=== PATIENT | female | born 1990 | race Caucasian/White ===

== ENCOUNTER → 2019-02-22 11:53 | Outpatient (CLI) | payer MEDICAID, SELFPAY ==
[2019-02-22 16:30] LABS: Chlamydia Trachomatis by PCR Negative (Negative); Neisserai gonorrhoeae by PCR Negative (Negative)
[2019-02-22 16:31] LABS: Probe Check PASS; Sample Adequacy Control PASS; Specimen Processing Control PASS
[2019-02-25 11:17] LABS: HPV HC, High Risk Negative (Negative)
== END ==
PROVIDERS: Visit Provider Obstetrics & Gynecology
DX: Z32.01 Encounter for pregnancy test, result positive (principal); Z12.4 Encounter for screening for malignant neoplasm of cervix; Z11.3 Encounter for screening for infections with a predominantly sexual mode of transmission
CPT/HCPCS: 87491; 87591; 87624; 88175; G0145

== ENCOUNTER → 2019-03-18 15:15 | Outpatient (CLI) | payer MEDICAID, SELFPAY ==
[2019-03-18 17:12] LABS: Absolute Lymphocyte Count 2.11 X10^3/ul (0.83-4.51); Absolute Neutrophil Count 4.6 X10^3/uL (2.0-7.7); Basophil# 0.01 X10^3/uL; Basophil% 0.1 % (0-1); Eosinophil# 0.19 X10^3/uL; Eosinophils% 2.5 % (0-5); Hematocrit 39.3 % (37-47); Hemoglobin 13.4 g/dl (12.0-15.0); Lymphocyte # 2.11 X10^3/ul (4.0); Lymphocyte % 27.9 % (19-41); Mean Corp Hgb Conc 34.1 g/gl (32-36); Mean Corpuscular Hgb 30.5 pg (27.0-32.0); Mean Corpuscular Volume 89.3 fL (81-99); Mean Platelet Vol. 11.4 fl (6.2-12.0); Monocyte# 0.65 X10^3/uL; Monocyte% 8.6 % (0-10); Neutrophil % 60.8 % (47-70); Platelet Count 234 K/mm3 (150-450); RBC Distribution Width CV 11.5 % (11.6-14.6); RBC Distribution Width SD 36.5 fl (35.1-43.9); White Blood Count 7.6 K/mm3 (4.4-11.0)
[2019-03-18 17:13] LABS: Color, Urine Yellow (Yellow); Glucose, Dipstick Normal (Normal); Ketone-Dipstick Negative (Negative); Leukocyte Esterase-Dipstick 100 /ul (Negative); Nitrite-Dipstick Negative (Negative); Occult Blood-Urine Negative /ul (Negative); POSITIVE COUNT NO; POSITIVE DIFFERENTIAL NO; POSITIVE MORPHOLOGY NO; Protein-Dipstick 15 mg/dl (Negative); Specific Gravity, Urine 1.015 (1.002-1.030); Urine Bilirubin Dipstick Negative (Negative); Urine Clarity Clear (Clear); Urine Urobilinogen 1 mg/dl (Normal)
[2019-03-18 17:27] LABS: Thyroid Stim Hormone (TSH) 0.18 uIU/mL (0.358-3.74)
[2019-03-18 17:33] LABS: Amphetamine Urine VISTA NEGATIVE (<1000 ng/mL); Barbiturate Urine VISTA NEGATIVE (< 200 ng/mL); Benzodiazepine Urine VISTA NEGATIVE (< 200 ng/mL); Cocaine Urine VISTA NEGATIVE (< 300 ng/mL); Ecstacy Urine VISTA NEGATIVE (< 500 ng/mL); Methadone Urine VISTA NEGATIVE (< 300 ng/mL); PCP Urine VISTA NEGATIVE (< 25 ng/mL); THC Urine VISTA NEGATIVE (< 50 ng/mL); Vista UDS pH Range 7
[2019-03-21 10:04] LABS: HIV - WCH Non-Reactive (Nonreactive); Hepatitis B Surface Antigen Non-Reactive (Nonreactive); Hepatitis C Antibody Non-Reactive (Nonreactive); Rubella IgG 29.2 IU/mL
[2019-03-21 11:56] LABS: Free T3 3.2 pg/mL (2.18-3.98); T4 Free Direct 1.19 ng/dL (0.76-1.46)
[2019-03-25 02:57] LABS: Prenatal RPR NONREACTIVE (NONREACTIVE)
== END ==
PROVIDERS: Visit Provider Obstetrics & Gynecology
DX: O99.281 Endocrine, nutritional and metabolic diseases complicating pregnancy, first trimester (principal); E03.9 Hypothyroidism, unspecified; Z3A.00 Weeks of gestation of pregnancy not specified
CPT/HCPCS: 36415; 80307; 81002; 84439; 84443; 84481; 85025; 86703; 86762; 86803; 87340

== ENCOUNTER → 2019-07-26 14:08 | Outpatient (CLI) | payer MEDICAID, SELFPAY ==
[2019-07-26 15:50] LABS: Hematocrit 36.1 % (37-47); Hemoglobin 11.9 g/dL (12.0-15.0); Mean Corpuscular Hgb 30.9 pg (27.0-32.0); Mean Corpuscular Volume 93.8 fL (81-99); Mean Platelet Vol. 11.6 fl (6.2-12.0); Platelet Count 218 K/mm3 (150-450); RBC Distribution Width SD 41.2 fl (35.1-43.9); Red Blood Count 3.85 M/mm3 (4.2-5.4)
[2019-07-26 16:01] LABS: Glucose Challenge Gest 1H 50g 149 mg/dL (70-140)
== END ==
PROVIDERS: Visit Provider Obstetrics & Gynecology
DX: Z34.83 Encounter for supervision of other normal pregnancy, third trimester (principal)
CPT/HCPCS: 36415; 82950; 84443; 85027

== ENCOUNTER → 2019-08-09 17:37 | Outpatient (CLI) | payer MEDICAID, SELFPAY ==
[2019-08-09 18:13] LABS: Hemoglobin A1c 5.1 % (4.2-6.3)
== END ==
PROVIDERS: Referring Provider Obstetrics & Gynecology; Visit Provider Obstetrics & Gynecology
DX: R73.09 Other abnormal glucose (principal)
CPT/HCPCS: 83036

== ENCOUNTER 2019-09-18 22:35 | Outpatient (CLI) | payer MEDICAID, SELFPAY ==
[2019-09-18 23:21] VITALS: BMI 28.3
--- NOTE | 2019-09-19 05:23 | OB.TRI.NOTE ---
- Problem List (1) False labor before 37 completed weeks of gestation Status: Acute Qualifiers: Trimester: third trimester Qualified Code(s): O47.03 - False labor before 37 completed weeks of gestation, third trimester History of Present Illness Date of Service: 09/19/19 Was patient seen by the physician?: Yes Reason For Visit: R/O LABOR Final ANGELIQUE: 10/17/19 Final ANGELIQUE Source: US <20 weeks Gestational age: 36 Weeks and 0 Days History of Present Illness: 29yo @ 36wga with c/o contractions. Denies LOF, VB. + FM. Reports abdominal pain on ROS. Pain x 2-3 weeks and reported it was constant, but later reported pain intermittent. Precipitated with sitting upright for too long. Denies alleviators or any relation to meals. Reports nausea and emesis up to 4x daily since the beginning of . Allergies No Known Allergies Allergy (Verified 09/19/19 02:17) Review of Systems Constitutional: Reports: Fatigue. Denies: Chills, Fever HEENT: Denies: Head Aches, Visual Changes Cardiovascular: Denies: Chest Pain, Edema Respiratory: Denies: Shortness of Breath Gastrointestinal: Reports: Abdominal Pain, Nausea, Vomiting - vomiting up to 4x daily throughout Genitourinary: Denies: Dysuria, Frequency, Hematuria Gynecological: Denies: Vaginal bleeding Physical Exam Vitals: avss General: Alert, Oriented x3, Cooperative, No apparent distress HEENT: Atraumatic, Normocephalic Cardiovascular: Regular Rhythm, Tachycardic Lungs: Clear to auscultation, Normal air movement Abdomen: Soft, Non Tender, Non-Distended, Gravid Extremities:: No edema Neurological: Neuro grossly intact NST - FHR Rate Baby A Baseline: 155 Variability:: Moderate Accelerations:: 15 x 15 Decelerations:: None NST Reactive:: Yes FHR Category:: Category I Impression/Plan 29yo @ 36wga with false labor -No dilation -Abdominal pain - nonacute, non-reproducible and likely due to musculoskeletal changes in -d/c home Code Visit Office Visits / Consults: [id number] OV L2 New
== END 2019-09-19 02:25 | disposition home or self-care (01) ==
LOC: WPOUT 23:04 → WP 23:07
PROVIDERS: Referring Provider Obstetrics & Gynecology; Visit Provider Obstetrics & Gynecology
DX: O47.03 False labor before 37 completed weeks of gestation, third trimester (principal); Z3A.36 36 weeks gestation of pregnancy
CPT/HCPCS: 59025; 59050; 99202; 99218; G0378

== ENCOUNTER → 2019-10-03 10:56 | Outpatient (CLI) | payer MEDICAID, SELFPAY ==
[2019-09-18 23:21] VITALS: BMI 28.3
== END ==
PROVIDERS: Visit Provider Obstetrics & Gynecology
DX: O26.893 Other specified pregnancy related conditions, third trimester (principal); R21 Rash and other nonspecific skin eruption; Z3A.00 Weeks of gestation of pregnancy not specified
CPT/HCPCS: 36415

== ENCOUNTER 2019-10-10 10:00 | Inpatient (IN) | payer MEDICAID, SELFPAY ==
[2019-10-10 08:58] VITALS: BMI 29.4
[2019-10-10 09:49] LABS: Hematocrit 30.6 % (37-47); Hemoglobin 9.9 g/dL (12.0-15.0); Mean Corp Hgb Conc 32.4 g/dL (32-36); Mean Corpuscular Hgb 27.9 pg (27.0-32.0); Mean Corpuscular Volume 86.2 fL (81-99); Mean Platelet Vol. 11.1 fl (6.2-12.0); Platelet Count 177 K/mm3 (150-450); RBC Distribution Width CV 13.2 % (11.6-14.6); RBC Distribution Width SD 41.3 fl (35.1-43.9); Red Blood Count 3.55 M/mm3 (4.2-5.4)
[2019-10-10] MEDS: Lactated Ringers 500 ML 999 ML IV ×4 (10:31→23:25)
--- NOTE | 2019-10-10 10:42 | PCM.HP.BLA ---
History and Physical Date of Admission: 10/10/19 ACOG ANTEPARTUM RECORD - HISTORY AND PHYSICAL (10/10/2019) Name: SOFY MCGARRY OB Physician: EZEQUIEL [place]'s Physician: [facility] ...................................................................... : 1990 Age: 29 Address: [address] [address] Phone: H) [phone]) [phone] Insurance Carrier: [employer] CLAIMS DEPT [id number] Emergency Contact: CORAZON GAYLE [phone] ...................................................................... Sofy is a 29yo at 39w0d gestation by 9w4d US who presents for c/o contractions since 2200 last evening Final ANGELIQUE: 10/17/19 By Ultrasound: PARITY: (G-Total Pregnancies P-Fullterm,Premature,Induced AB,Spont AB, Ectopics, Multiple,Living) ANEGLIQUE CONFIRMATION: By LMP: 01/04/19 Final ANGELIQUE: 10/17/19 OB PROBLEM LIST: Declines MSAFP and CF testing Glucola high 149 REFUSED 3 hr GTT -- Hgb A1C 5.1 % WNL. High stress levels related to custody issues with daughter's father New FOB, this is his first child Quit smoking 6 months ago TSH suppressed early , TSH wnl at 28 wks Free T3 and free T4 WNL WNL at 28 wks. Wants PP tubal Signed Federal consent for tubal on 08/23/19 ALLERGIES: No Known Drug Allergies MEDICATIONS: 28 mg-800 mcg tablet 1 PO QD Prevacid 30 mg capsule,delayed release 1 po daily promethazine 25 mg tablet one tab PO every 6 hours as needed for nausea Zofran 4 mg tablet one tab PO every 6 hours as needed for nausea SOCIAL HISTORY: Smoking - used to smoke but quit Alcohol Use - drinks occasionally and not while Diet - no special diet Lifestyle - moderate stress lifestyle and Exercise - active Employer - unemployed Job Description - Illicit Drug Use - denies use of street drugs Sexual Activity - Residence - lives with Place of - [place], [place] Spouse-Sig Other Name - Corazon Gayle Spouse-Sig Other Occupation - production waste management Spouse-Sig Other Phone No - [phone] Children Name(s) - Eliu Mohan Sarah PRIOR DELIVERY HISTORY DEL DATE GEST LAB WT LB WT OZ TYPE ANES LABOR TX Jul 31 4 0 0 0 Sab None No May 29 38 12 6 10 Vag Epidural No Apr 23 38 3 6 14 Vag None No May 31 38 4 6 5 Vag Epidural No ANTEPARTUM FLOW CHART VISIT GE RTC FU F F UT U U DATE WK MD WKS HT PN HR M SS BP ED WT UT GL D EF ST __ ____ ___ __ __ ___ __ __ __ ___ __ __ __ ___ __ 20 Sep CH 1 38 V + + 124/70 sl 161 tr - 2+ 50 -2 Sep KW 1 37 V + + 120/70 0 157 tr - 1+ 50 -3 07 Sep CH 1 37 V + + 110/60 sl 154 tr - Aug ELB 1 35 V + + 120/80 sl 154 tr - Aug ELB 2 33 - + + 124/64 sl 153 - - Aug ELB 2 31 - + + 110/72 0 151 tr - Aug 13 ELB 2 30 - + + 120/72 0 152 tr - Aug 11 CH 2 26 V + + 100/80 0 149 23 Jul 08 KW + 112/82 0 149 tr - 18 Jul 07 ELB 4 24 - + + 110/74 149 20 Jun 03 ELB 4 - B U+ + 90/78 0 141 tr - 06 Jun 01 ELB 2 - - + + 110/70 0 141 - - Apr 26 ELB 4 - - + O 100/72 0 138 - - 05 Mar 22 ELB 4 - - U+ O 100/60 139 - - ANTEPARTUM NOTE(S): Oct 03 2019: lots of pressure and having some cxs. Cervix check. Sep 27 2019: Cervix check. Would like membrane stripped. Sep 20 2019: feeling well. was in L and D for cxs. Sep 13 2019: no Tdap, GBS next visit, reviewed FM, and labor Aug 30 2019: Aug 23 2019: doing well Aug 09 2019: doing well, reviewed FM, PTL- declines flu and Tdap Jul 26 2019: feeling well. Glucola drawn. Jul 06 2019: bleeding and upper right abd pain this morning Jul 01 2019: Jun 03 2019: feeling well. May 20 2019: feeling well. Apr 15 2019: nausea has been getting better. Mar 18 2019: Nausea COMPREHENSIVE ANTEPARTUM NOTE(S): Oct 03 2019: here for increased leti smith and pressure. SVE 50/-2 membrane swept. FHR 142. +FM. Rash on abdomen, but no palm or sole itching. Will still get bile acids to check. If okay will return in 1 week for routine PNV with KW and wishes IOL at 39.0. - Sep 30 2019: LATE ENTRY FOR 09/27/19 - Feeling well; reports active FM, frequent BH UCs; denies VB, LOF; VE per patient request 1.5 /-3 soft, posterior; membrane sweep requested and performed; discussed FM counts, warning signs, s/s Labor, when to call/come in; RTO 1 week for PNV - W Sep 20 2019: Routine PNV. Reports +FM. FHR 143. GBS already done in LD. Was fanny, but not dilating. Stopped fanny after hydrated. Will start doing SVE at 38 weeks with membrane sweeping. Already off work. Signed BTL for PP. Understands will schedule at 6wk PP appointment. Is planning an epidural in labor. To call with decreased FM, bleeding, ROM or regular UC. Will return in 1 week for routine PNV. [facility] Sep 13 2019: REQUESTS NOTE to be off work. Cleaning supplies and odors causing more problem with N/V. Gets preschool services through S and needs note for this. Advised she may not deliver for another month. RTO in 1 wk for PNV. Note for off work to be given at front. Aug 30 2019: UA: Sp Gr 1.020. Tr LE. Tr protein. Otherwise NEG. States not able to keep anything down. Ketones NEG. Advised as ketones neg, 2# wt gain since last visit and no evidence of UTI. Prevacid daily RX sent in and may continue the prn zofran and phenergan. Aug 23 2019: FM, PTL, PROM reviewed. Refuses both Influenza and Tdap vaccines. LMT Aug 23 2019: Reviewed R,B,A of tubal ligation. Advised interval procedure unless she has a C/S delivery. Reviewed methods including: BPS, filshie vs bilateral salpingectomy as interval procedure. Interested in interval procedure. RTO In 2 wk for PNV. Aug 10 2019: Hg A1C 5.1 - Aug 09 2019: Refused 3 hr GTT 1 hr glucola high 149 WIll get HgbA1C and is ok with this. Refused both flu vaccine and tdaP. RTO in 2wk for PNV. EB Jul 26 2019: (m,m,f,f*) U/S today shows resolved previous placenta previa. 7.3cm away from cervix. Growth 39%, RADHA 12.7cm. Denies any bleeding or contractions. Feeling well. Reporting +FM. FHR 150. Had 3rd trimester labs drawn today, with added TSH to recheck from low TSH in 1st trimesterr. Discussed warning signs to call. Will return in 2 weeks for routine PNV with Dr. Vidal Harrison Jul 06 2019: Sofy calling @ 25 wks 2 days with concern of sharp stabbing pains R side intermittently since Thursday, becoming more painful. Red spotting noted last night and this morning with associated cramping. Denies IC past 3 days. Fetus moving, but less than her normal. appt given for this afternoon. Jul 06 2019: Pt reportig lower R sided abdominal cramping x 3 days, and spotting; describes spotting as brownish red, small amount on tissue after using bathroom last night and this morning; none since that time; denies IC x 3 days; denies fall or impact of any kind; denies s/s UTI; tender area lower right abdomen near round ligamen; US shows marginal previa resolved, no placental separation, no cysts; advised pt likely old blood from cervical irritation from IC, and pain likely musculoskeletall; advised Tylenol, 1000mg and heat to area, rest and fluids, call if no relief; RTO next scheduled office visit - KVW Jul 01 2019: Sofy is here for visit. She reports increased pressure. This is her fourth . Advised to try maternity support belt. She is wanting an u/s today. Advised no u/s available today. This is usually repeated at 28-30 weeks. Glucola is given. Recommended Influenza and Tdap. LMT Apr 15 2019: Reviewed NOB labs. Doing well. RTO In 4 wk for PNV. 7-8 wk for PNV and 20 wk sono. EB Mar 21 2019: Rubella IMMUNE EB Mar 18 2019: States still N/V in am and during daytime,. and more able to tolerate foods at hs. Zofran and Promethazine RX at home., declines RX RF for today. Weight is stable Some constipation. RTO in 4 wk for PNV. Labs and NOB today, all done. EB hgb 13.4 g/dl. EB Mar 18 2019: Sofy is here for her NOB visit at 9 w 4 d, she is a A1 with an ANGELIQUE of 10/17/2019. FOB/SO, Corazon Gayle accompanies her today, along with her oldest son. This is Corazon's first child, and he seems supportive. Sofy plans delivery at [facility], and to both breast and formula feed baby. Encouraged to take a guided group tour of [facility] OB Unit. She would like to have a pp tubal. Sofy has had vaginal deliveries with her other children; past history updated. Office practice patterns reviewed, including labs that will be collected today. Emergencies/danger signs to report, contacting the office after hours, round ligament pain, reporting s/s of a UTI, and common OTC medications approved/not approved for use during reviewed. Sofy states that she quit smoking at the end of 2018, and tries to avoid second hand smoke. Corazon smokes outside. She denies use of drugs or ETOH. Genetic Screening form completed, no significant history noted, MSAFP and CF testing declined, consent signed as such. Sofy reports daily N/V, and that neither Phenergan or Zofran have been helpful. Reviewed measures that may minimize nausea, including small frequent meals with protein included throughout the day, adequate water hydration of at least one gallon every 24 hrs, Unisom at bedtime, Vitamin B6 50 mg twice a day, and motion sickness bracelets. She is able to take a gummy vitamin that contains DHA. She states that she keeps active walking several times a week. Kegel exercises reviewed. Lifting restrictions discussed. Dietary and water needs reinforced, including caloric needs, recommended weight gain, limiting empty calories, and limiting caffeine to one cup a day. Printed guide for food safety provided with review. oSfy states that she understands all information provided during NOB visit, and that she has no questions following same. To [facility] draw station for labs. AW Feb 22 2019: Sofy is here today for missed menses appointment. Patient is a . Positive upt in office today. Planned . Patient states that lmp is 01/04/2019 making her 7 wks with Angelique of 09/2019. Patient states that she has had no bleeding or spotting since lmp. Patient states that prior to menses were regular and months since having IUD removed in 2017. Patient states that with IUD she had no menses. She does have nausea and has used phenergan in the past with good results. Patient states that she has h/o normal pap's with most recent pap probably 4 years ago. Pap and Gc/Ct cultures due at today's visit. Patient has started with vitamin. Educational materials provided and reviewed with patient. hailey REVIEW OF SYSTEMS: GENERAL - Denies fever, or chills SKIN - Denies rash, new skin lesions, or change in moles EYES - Denies blurred vision, or change in visual acuity EARS - Denies ear pain, or difficulty hearing NOSE - Denies nasal congestion, discharge, or bleeding MOUTH - Denies sore throat, or difficulty swallowing NECK - Denies pain or swelling RESPIRATORY - Denies shortness of breath, cough, wheezing CARDIOVASCULAR - Denies palpitations, chest pain, orthopnea, PND, peripheral edema, syncope or claudication GASTROINTESTINAL - Denies nausea, vomiting, diarrhea, constipation, Denies abdominal pain, melena and or bright red blood GENITOURINARY - Denies dysuria, frequency of urination, urgency, or hesitancy MUSCULOSKELETAL - Denies joint or muscle pain, or back pain NEUROLOGICAL - Denies localized numbness, weakness, or tingling PSYCHIATRIC - Denies depression, anxiety, substance abuse or suicide attempts ENDOCRINE - Denies heat or cold intolerance, weight loss or gain, increasing thirst HEMATO-IMMUNOLOGIC - Denies easy bruising, bleeding, oral ulcerations or recurrent infections GENETICS SCREENING: Age 35+ years: No Thalassemia: No Neural Tube Defect: No Down Syndrome: No RAJESH-SACHS: No Sickle Cell Disease: No Hemophilia: No Musc. Dystrophy: No Cystic Fibrosis: No-declines screening Alona Chorea: No Mental Retardation: No Fragile X: No Other genetic: No Other defects: No SABs/still births: No Drugs since LMP: No INFECTION HISTORY: High risk AIDS: No High risk Hepatitis: No Exposed to TB: No Exposed to Herpes: No Rash/viral illness since LMP: No History of STD: No MENSTRUAL HISTORY: *Menses Amount/Duration: 3-4 dayMenses Regularity: regularFrequency: monthlyMenarche (Age Onset): 12* PAST SUMMARY: PARITY: 1. Total Pregnancies............ 5 2. Full Term Pregnancies........ 3 3. Premature.................... 0 4. Abortions - Induced.......... 0 5. Abortions - Spontaneous...... 1 6. Ectopics..................... 0 7. Multiple Births.............. 0 8. Living Children.............. 3 PAST #1: Date of :.................. 04/18/10 Gestation Weeks:................ 38 Length of labor(hours):......... 3 Sex:............................ M Weight-lbs:............... 6 Weight-oz:................ 14 Type of Delivery:............... Vag Type of Anesthesia:............. None Place of Delivery:.............. [facility] Treatment of Labor?:.... No Comment: PAST #2: Date of :.................. 05/15/15 Gestation Weeks:................ 38 Length of labor(hours):......... 12 Sex:............................ M Weight-lbs:............... 6 Weight-oz:................ 10 Type of Delivery:............... Vag Type of Anesthesia:............. Epidural Place of Delivery:.............. [facility] Treatment of Labor?:.... No Comment: GBS + PAST #3: Date of :.................. 05/31/17 Gestation Weeks:................ 38 Length of labor(hours):......... 4 Sex:............................ F Weight-lbs:............... 6 Weight-oz:................ 5 Type of Delivery:............... Vag Type of Anesthesia:............. Epidural Place of Delivery:.............. [facility] Treatment of Labor?:.... No Comment: LATE CARE PAST #4: Date of :.................. 07/15/17 Gestation Weeks:................ 4 Length of labor(hours):......... 0 Sex:............................ Weight-lbs:............... 0 Weight-oz:................ 0 Type of Delivery:............... Sab Type of Anesthesia:............. None Place of Delivery:.............. none Treatment of Labor?:.... No Comment: DATE APPROX Labs for : SOFY MCGARRY since 01/20/2019 ORDER DATEIN DESCRIPTION VALUE UNITS RANGE A+ COMMENT CBC-COMPLETE BLOOD CNT NO DIFF 10/10/19 NOTE Original Ordering Provider: JO Rojas WBC 10.0 K/mm3 4.4-11.0 RBC 3.55 M/mm3 4.2-5.4 L HGB 9.9 g/dL 12.0-15.0 L HCT 30.6 % 37-47 L MCV 86.2 fL 81-99 MCH 27.9 pg 27.0-32.0 MCHC 32.4 g/dL 32-36 RDW CV 13.2 % 11.6-14.6 RDW SD 41.3 fl 35.1-43.9 PLT 177 K/mm3 150-450 MPV 11.1 fl 6.2-12.0 HEMOGLOBIN A1C 08/09/19 NOTE Original Ordering Provider: Vonda Cross HGB A1C 5.1 % 4.2-6.3 Reviewed by EZEQUIEL THYROID STIM HORMONE (TSH) 07/26/19 NOTE Original Ordering Provider: JO Avina TSH 0.40 uIU/mL 0.358-3.74 Reviewed by VONDA GLUCOSE CHALLENGE GEST 1H 50G 07/26/19 NOTE Original Ordering Provider: JO Avina GLU GEST 50G 1H 149 mg/dL 70-140 H Reviewed by VONDA CBC-COMPLETE BLOOD CNT NO DIFF 07/26/19 NOTE Original Ordering Provider: JO Avina WBC 10.0 K/mm3 4.4-11.0 RBC 3.85 M/mm3 4.2-5.4 L HGB 11.9 g/dL 12.0-15.0 L HCT 36.1 % 37-47 L MCV 93.8 fL 81-99 MCH 30.9 pg 27.0-32.0 MCHC 33.0 g/dL 32-36 RDW CV 12.0 % 11.6-14.6 RDW SD 41.2 fl 35.1-43.9 PLT 218 K/mm3 150-450 MPV 11.6 fl 6.2-12.0 Reviewed by VONDA RPR 03/18/19 NOTE Original Ordering Provider: Vonda Cross RPR NONREACTIVE NONREACTIVE Reviewed by VONDA T4 FREE DIRECT 03/18/19 NOTE Original Ordering Provider: Vonda Cross T4 FREE DIRECT 1.19 ng/dL 0.76-1.46 Reviewed by VONDA THYROID STIM HORMONE (TSH) 03/18/19 NOTE Original Ordering Provider: Vonda Cross TSH 0.18 uIU/mL 0.358-3.74 L Reviewed by VONDA FREE T3 03/18/19 NOTE Original Ordering Provider: Vonda Cross FREE T3 3.2 pg/mL 2.18-3.98 Reviewed by VONDA HEPATITIS C ANTIBODY 03/18/19 NOTE Original Ordering Provider: Vonda Cross HEPATITIS C AB Non-Reactive Nonreactive Non Reactive: < 0.8 Equivocal: >/= 0.8 to < 1.0 Reactive: >/= 1.0 The CDC recommends that a reactive/equivocal HCV antibody result be followed up by the HCV Nucleic Acid Amplification test (338388) Reviewed by VONDA HEPATITIS B SURFACE ANTIGEN 03/18/19 NOTE Original Ordering Provider: Vonda Cross HEPB SURFACE AG Non-Reactive Nonreactive Reviewed by VONDA HIV - [facility] 03/18/19 NOTE Original Ordering Provider: Vonda Cross HIV - [facility] Non-Reactive Nonreactive Reviewed by VONDA RUBELLA IGG 03/18/19 NOTE Original Ordering Provider: Vonda Cross RUBELLA IGG 29.2 IU/mL Antibody results Interpretation of Immune Status < 5 IU/ml Presumed Non-immune 5 - < 10 IU/ml Equivocal > or = 10 IU/ml Presumed Immune Reviewed by VONDA T AND S-NO CHARGE W/PNP 03/18/19 Reason for Type AND Screen/Red Cells: Surgery? [facility]~[address] [facility] [place], [address]~ BLOOD TYPE GEL O POSITIVE N AB SCREEN GEL NEGATIVE N Reviewed by VONDA URINE DRUG SCREEN (VISTA) 03/18/19 NOTE Original Ordering Provider: Vonda Cross TO BE CONFIRMED CONFIRMATORY TESTING FOR ALL POSITIVE URINE DRUG SCREEN RESULTS WILL ONLY BE SENT OUT UPON PHYSICIAN ORDER. VISTA Urine Drug Screen methods provide only preliminary analytical test results. A more specific alternate chemical method must be used in order to obtain a confirmed analytical result. Gas chromatography/mass spectrometery (GC/MS) is the preferred confirmatory method. Clinical consideration and professional judgement should be applied to any drug of abuse test result, particularly when preliminary positive results are used. URINE TCA TESTING MUST BE ORDERED SEPARATELY. USE TEST MNEMONIC: [facility]IST[facility] UDS PH 7 AMPHETAMINES NEGATIVE <1000 ng/mL BARBITIURATES NEGATIVE < 200 ng/mL BENZODIAZIPINE NEGATIVE < 200 ng/mL COCAINE NEGATIVE < 300 ng/mL ECSTACY NEGATIVE < 500 ng/mL METHADONE NEGATIVE < 300 ng/mL OPIATES NEGATIVE < 300 ng/mL PCP NEGATIVE < 25 ng/mL THC NEGATIVE < 50 ng/mL Reviewed by VONDA URINALYSIS, ROUTINE (DIPSTICK) 03/18/19 NOTE Original Ordering Provider: Vonda Cross COLOR Yellow Yellow CLARITY Clear Clear GLUCOSE, UR Normal mg/dl Normal BILIRUBIN URINE Negative mg/dL Negative KETONE UR Negative mg/dl Negative SP.GR. DIPSTX 1.015 1.002-1.030 PH UR 7.0 5.0 - 8.0 PROT DIPSTX 15 mg/dl Negative H UROBILI 1 mg/dl Normal H NITRITE UR Negative Negative OCCULT BLOOD-UR Negative /ul Negative LEUK ESTERASE 100 /ul Negative H Reviewed by VONDA Reviewed by VONDA CBC W/DIFF, AUTOMATED 03/18/19 NOTE Original Ordering Provider: Vonda Cross WBC 7.6 K/mm3 4.4-11.0 RBC 4.40 M/mm3 4.2-5.4 HGB 13.4 g/dl 12.0-15.0 HCT 39.3 % 37-47 MCV 89.3 fL 81-99 MCH 30.5 pg 27.0-32.0 MCHC 34.1 g/gl 32-36 RDW CV 11.5 % 11.6-14.6 L RDW SD 36.5 fl 35.1-43.9 PLT 234 K/mm3 150-450 MPV 11.4 fl 6.2-12.0 NEUT% 60.8 % 47-70 LY% 27.9 % 19-41 MONO% 8.6 % 0-10 EO% 2.5 % 0-5 BASO% 0.1 % 0-1 IM GRAN % 0.100 % 0.0-0.9 IG% - Immature Granulocytes (promyelocytes, myelocytes and metamyelocytes) > 1% indicates that a LEFT SHIFT is Present. ABSOLUTE NEUT 4.6 X10 3/uL 2.0-7.7 ABSOLUTE LYMPH 2.11 X10 3/ul 0.83-4.51 Reviewed by VONDA Reviewed by VONDA PAP I-G HPV HI RISK 02/22/19 NOTE Original Ordering Provider: Evelin Haq DIAGN . NEGATIVE FOR INTRAEPITHELIAL LESION OR MALIGNANCY. PREDOMINANCE OF COCCOBACILLI CONSISTENT WITH SHIFT IN VAGINAL JOHNNY IS PRESENT. ADEQ . Satisfactory for evaluation. No endocervical component is identified. PERFORM . Kayleen Ying Occupational Health Nurse Manager (ASCP) TEST METHOD . This liquid based ThinPrep(R) pap test was screened with the use of an image guided system. COMM . . PAPSMR . The Pap smear is a screening test designed to aid in the detection of premalignant and malignant conditions of the uterine cervix. It is not a diagnostic procedure and should not be used as the sole means of detecting cervical cancer. Both false-positive and false-negative reports do occur. HPV HC,HGH RISK Negative Negative This high-risk HPV test detects thirteen high-risk types (16/18/31/33/35/39/45/51/52/56/58/59/68) without differentiation. Performed at: [address] [id number] Bell Captain: Stefania Smith MD, Phone: [phone] Performed at: = - [address] [id number] Bell Captain: Stefania Smith MD, Phone: [phone] Reviewed by EVELIN KELLY/JOSE [facility] BY PCR 02/22/19 NOTE Original Ordering Provider: Evelin REYNOLDS [facility] PCR Negative Negative JOSE BY PCR Negative Negative Reviewed by EVELIN PROVIDER SIGNATURE ( REQUIRED) PHYSICAL EXAMINATION General Appearence: 29 yo female in no acute distress Vital Signs: AF, VSS Heart: RRR without rubs or gallops Lungs: CTA x 2 Breasts: deferred Abdomen: gravid Pelvis: Cervix: 4/75/-2 per RN at 0820 Presentation: cephalic UCs: 2-3 Fetus: Size: AGA Movement: present Heart: 155 baseline, mod variability + accels, 2 isolated late decelerations at 0900 Impression: 29yo at 39w0d gestation by 9w0d US Cat 2 FHTs GBS unknown O pos negative antibodies Plan: Admit to L&D Continuous monitoring IV fluids Rapid GBS Anticipate vaginal
[2019-10-10] MEDS: Lactated Ringers 1,000 ML 50 ML IV (11:00)
[2019-10-10] MEDS: fentaNYL-bupivacaine (epidural) 100 ML BAG EPIDURAL ×3 (11:20→20:31)
[2019-10-10] MEDS: Acetaminophen 325 MG Tablet PO (11:41)
[2019-10-10] MEDS: Ondansetron 4 MG/2 ML Vial IV (11:41)
[2019-10-10 12:39] LABS: Group B Strep DNA By PCR Negative (Negative); Internal Control PASS; Probe Check PASS; Specimen Processing Control PASS
--- NOTE | 2019-10-10 12:53 | PCM.PN.BLA ---
Progress Note This entry is for today at 1005 S: Per RN, pt uncomfortable, rating UC pain 10/10, requesting epidural O: AVSS FHTs: 150 baseline, moderate variability, +acels, 1 isolated variable deceleration UCs:Q 2-3 Cervix: 5/-85/-2 A: Active labor GBS pending P: Pt may have epidural
[2019-10-10] MEDS: proCHLORPERazine 10 MG/2 ML Vial IV (13:20)
--- NOTE | 2019-10-10 19:04 | PCM.PN.BLA ---
Progress Note S: Comfortable with epidural; spouse and family bedside and supportive O: AVSS FHTs - 150 baseline, moderate variability, +accels, variable deceleration UCs: Q 2-4 Cervix: 6-7/80/-2 A: Active labor, protracted Cat 2 FHTs Rapid GBS negative P: AROM for small amount clear fluid Will recheck cervix in 2 hours, start Pitocin if reactive FHTs and no change
--- NOTE | 2019-10-10 20:17 | PCM.PN.BLA ---
Progress Note At 1949 RN reports that patient's HR hovering between 120-150, pt states feeling her heart race; BP 109/60; Approx 1999 Seen by Anesthesia per CNM request, LR bolus given; pt states she has been vomiting much of the day yesterday Impression: likely hypovolemic Plan: Will continue to monitor, intervene if needed
[2019-10-10] MEDS: Lactated Ringers 1,000 ML 200 ML IV (20:31)
--- NOTE | 2019-10-10 21:03 | PCM.PN.BLA ---
Progress Note S: Feeling constant pressure with contractions O: SG=794/65, VE=831, R=20, GT=98.9 FHTs: 175 baseline, moderate variability, variable decels UCs: Q 1-3 Cervix: 9/100/-2 A: Active labor Cat 2 FHTs tachycardia P: Prepare for delivery Anticipate vaginal delivery ,
[2019-10-10] MEDS: Oxytocin 30 units/NS 500 ml 30 UNITS/500 ML IV.SOLN 334 UNITS IV (21:59)
[2019-10-10] MEDS: Methylergonovine 0.2 MG/ML Ampul IM (22:25)
--- NOTE | 2019-10-10 22:40 | PCM.OPRPT ---
Vaginal Delivery Maternal Presentation: Active Labor Pt presented c/o contractions at 0818 this morning; she was fanny regularly and significant cervical change was noted from her last office visit, so she was admitted for labor Amniotic Membrane Rupture Type: Artificial Rupture of Membrane time: 1834 Amniotic Fluid Description: Clear Final ANGELIQUE: 10/17/19 Final ANGELIQUE Source: US <20 weeks Gestational age: 39 Weeks and 0 Days Date of Procedure: 10/10/19 Pre-Operative Diagnosis: Labor Post-Operative Diagnosis: Surgery/ Procedure Performed: Spontaneous Vaginal Delivery Type of Anesthesia: Epidural Description of Procedure: CTSP when she was C/C/+2; pushed well, spontaneous delivery of head ANA at 2137 followed by turtle sign, L shoulder anterior; additional staff called to room, pt placed immediately in Raf[place] followed by suprapubic pressure applied by RN and delivered fully 40 seconds after head; terminal meconium noted; placed on mother's abdomen, dried, stimulated and bulb suctioned, APGARs 8/9; full range of motion of all extremities noted; placenta delivered spontaneously, Mcfarland mechanism, intact, 3-vessel cord, central insertion; first degree perineal laceration noted, repaired with 3-0 Vicryl, good hemostasis obtained; lidocaine required for repair; large hemorrhoid noted; arterial and venous blood gases drawn; EBL 300 Lap sponge, Raytec, and instrument count correct x 2 with RN Presentation: Vertex, ANA Placental Delivery Description: Spontaneous Placenta Disposition: [facility] Cord Vessel Description: 3 Vessels Cord Gases drawn per routine: ABG, VBG Cord Entanglement: None Estimated Blood Loss: 300 A gender: Female (1 minute): 8 (5 minute): 9 Laceration: Midline, Perineal Extension/lac, 1st degree Medications given after delivery: IV Pitocin, IM Methergin
[2019-10-10] MEDS: fentaNYL 100 MCG/2 ML Ampul 50 MCG IV (23:19)
[2019-10-10] MEDS: Carboprost Tromethamine 250 MCG/ML Ampul IM (23:27)
--- NOTE | 2019-10-10 23:44 | PCM.PN.BLA ---
Progress Note Called to patient room at 2315 w/report of increased bleeding with clots; pt expressing sense of fullness Fundus boggy, minimal bleeding noted w/fundal massage; Pierce catheter in place, bladder not palpable; two previous pads w/clots and lochia weighing a total of 135g; 50mcg Fentanyl given IV, then manual exploration of lower uterine segment revealed firm lower segment, several small clots weighing total of 18g removed; pt tolerated well; Fundus remained boggy, 250mcg Hemabate given IM L thigh at 2327; fundus then firm, midline, u/u; Vitals BP 124/81, HR 116, Pulse ox 96 percent room air;
[2019-10-11] MEDS: Ondansetron 4 MG/2 ML Vial IV (00:36)
[2019-10-11] MEDS: Lactated Ringers 1,000 ML 125 ML IV (00:50)
[2019-10-11] MEDS: Loperamide 2 MG Capsule PO ×2 (01:11→07:04)
[2019-10-11] MEDS: proMETHazine 25 MG/ML Syringe IV (02:27)
[2019-10-11 03:18] VITALS: BP 122/87; PULSE 110; RESP 16; TEMP 37.1; O2SAT 95
--- NOTE | 2019-10-11 03:43 | NURSING ---
71ml of fentanyl/bupivacaine wasted with Atilio HUDSON after epidural was d/c'd, wasted in rx destroyer. was wasted under fentanyl ampule in accudose 50mcg of fentanyl wasted in RX destroyer with Kendall HUDSON, unable to chart waste in accudose due to fentanyl/bupivacaine waste was charted under this ampule
[2019-10-11 05:15] VITALS: BP 120/70; PULSE 80; RESP 18; TEMP 37.2
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
--- NOTE | 2019-10-11 06:09 | PCM.DCVAG ---
Discharge Diet: No Restrictions Discharge Activity: Return to Normal Activity, No Restrictions, May Drive Return to work on:: 11/21/19 May resume sexual activity in: 6-8 weeks Weight Bearing Status: Weight bearing as tolerated Additional Activity Instructions:: Minimize cleaning, cooking, shopping or long car trips for two weeks; try to get at least 8 hours sleep in 24 hours; sleep when the baby sleeps Call your doctor if your incision/area has: Continuous Slow Oozing, Sudden Increased Bleeding, Increased Pain/ Swelling, Increased Redness, Foul Smelling Discharge, Swelling at the incision site Call your doctor if you observe: Fever of 101 or Higher, Inability to urinate, Inability to have a bowel movement, Using more than one pad per hour, Shortness of breath, Dizziness, Fainting spells, Swelling in the ankles, Chest pain, Calf discomfort, Uncontrolled pain Suture Line Care: Avoid Pulling/Pushing Additional Instructions: If you experience any of the following, contact your healthcare provider. Bleeding that soaks a pad every hour for 2 hours Fever 100.4 or higher Unrelieved incision or abdominal pain Swelling, redness, discharge or bleeding from your incision or episiotomy site Your incision begins to separate Problems urinating (including inability to urinate or burning while urinating). Visual changes Severe headache Flu-like symptoms Pain or redness in one of both of your breasts Pain, warmth, tenderness or swelling in your legs, especially the calf area Frequent nausea and vomiting Symptoms of depression or anxiety If you experience any of the following, call 911 or go to the nearest Emergency Room. Chest pain Problems breathing Seizure activity Partial or complete paralysis of a body part, slurred speech, weakness or drooping of the face, or a sudden inability to walk or hold your balance Allergies/Adverse Reactions: Allergies No Known Allergies Allergy (Verified 10/10/19 08:31) Medications to take at Discharge Omeprazole [Prilosec] 10 mg PO DAILY 09/19/19 Pnv No.103/Folic/Om3s/Fish Oil [ Gummies] 1 ea PO DAILY 09/19/19 Docusate Sodium [Colace] 100 mg PO DAILY PRN 30 Days #30 cap 10/12/19 Ferrous Sulfate 325 mg PO BID 30 Days #60 tab 10/12/19 The following prescriptions were given: Docusate Sodium [Colace] 100 mg PO DAILY PRN 30 Days #30 cap PRN Reason: Constipation Transmission Status: Sent to [facility] Ferrous Sulfate 325 mg PO BID 30 Days #60 tab Transmission Status: Received by [facility] Please Follow Up With: Beti Rojas CNM When: at six weeks for checkup Test Results: Test results from this visit will be discussed in further detail at your follow-up appointment, if applicable. Proposed Discharge Date: 10/12/19
[2019-10-11 08:03] LABS: Absolute Lymphocyte Count 0.71 X10^3/uL (0.83-4.51); Absolute Neutrophil Count 15.4 X10^3/uL (2.0-7.7); Basophil# 0.02 X10^3/uL; Basophil% 0.1 % (0-1); Hematocrit 27.2 % (37-47); Hemoglobin 8.8 g/dL (12.0-15.0); Lymphocyte # 0.71 X10^3/ul (4.0); Lymphocyte % 4.1 % (19-41); Mean Corp Hgb Conc 32.4 g/dL (32-36); Mean Corpuscular Hgb 27.6 pg (27.0-32.0); Mean Corpuscular Volume 85.3 fL (81-99); Mean Platelet Vol. 10.7 fl (6.2-12.0); Monocyte# 0.99 X10^3/uL; Monocyte% 5.7 % (0-10); NRBC Flagged by Analyzer 0.2 % (0-5); Neutrophil # 15.35 X10^3/uL (2.7-7.7); Neutrophil % 88.4 % (47-70); Platelet Count 180 K/mm3 (150-450); RBC Distribution Width CV 13.6 % (11.6-14.6); RBC Distribution Width SD 42.3 fl (35.1-43.9); Red Blood Count 3.19 M/mm3 (4.2-5.4); White Blood Count 17.4 K/mm3 (4.4-11.0)
[2019-10-11] MEDS: Ibuprofen 600 MG Tablet PO ×2 (09:11→16:35)
[2019-10-11 09:16] VITALS: BP 114/66; PULSE 112; RESP 18; TEMP 37.3; O2SAT 96
[2019-10-11 12:04] VITALS: BP 107/56; PULSE 118; RESP 16; TEMP 36.3; O2SAT 95
[2019-10-11] MEDS: Acetaminophen 500 MG Tablet 1000 MG PO (12:21)
[2019-10-11 16:21] VITALS: BP 108/65; PULSE 102; RESP 16; TEMP 36.4; O2SAT 96
[2019-10-11] MEDS: Senna/Docusate Sodium 1 Tablet PO (16:35)
[2019-10-11 20:37] VITALS: BP 141/107; PULSE 97; RESP 18; TEMP 36.3; O2SAT 97
--- NOTE | 2019-10-11 20:58 | NURSING ---
Pt requesting bottles at this time for supplementation, pt states my plan was to breast feed and give formula. Educated pt on importance of and using yang cup for feeding, pt requesting nipple. Education provided on amount of formula after attempts. Nursery RN aware and huddle form completed.
[2019-10-12 02:58] VITALS: BP 110/69; PULSE 94; RESP 20; TEMP 36.7; O2SAT 100
[2019-10-12] MEDS: Acetaminophen 500 MG Tablet 1000 MG PO (03:10)
[2019-10-12 07:35] VITALS: BP 113/70; PULSE 84; RESP 16; TEMP 36.6; O2SAT 97
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
== END 2019-10-12 12:30 | disposition home or self-care (01) | DRG 560 ==
LOC: WPOUT 10:19 → WP 10:19
PROVIDERS: Admitting Provider Advanced Practice Midwife; Visit Provider Advanced Practice Midwife
DX: O70.0 First degree perineal laceration during delivery (principal); O76 Abnormality in fetal heart rate and rhythm complicating labor and delivery; O77.0 Labor and delivery complicated by meconium in amniotic fluid; O90.81 Anemia of the puerperium; D64.9 Anemia, unspecified; Z91.419 Personal history of unspecified adult abuse; Z87.891 Personal history of nicotine dependence; Z3A.39 39 weeks gestation of pregnancy; Z37.0 Single live birth
CPT/HCPCS: 59025; 59050; 85025; 85027; 86850; 86900; 86901; 87081; 87653; 99218; J7120; G0378; J2405

== ENCOUNTER 2020-03-12 09:01 | Day surgery (SDC) | payer MEDICAID, SELFPAY ==
[2020-03-07 13:48] LABS: Hematocrit 41.8 % (37-47); Hemoglobin 13.2 g/dL (12.0-15.0); Mean Corp Hgb Conc 31.6 g/dL (32-36); Mean Corpuscular Hgb 28.7 pg (27.0-32.0); Mean Corpuscular Volume 90.9 fL (81-99); Mean Platelet Vol. 10.7 fl (6.2-12.0); Platelet Count 322 K/mm3 (150-450); RBC Distribution Width SD 42.6 fl (35.1-43.9)
[2020-03-07 13:56] LABS: Internal QC Validated? YES +Cl - CLEAR BKGD; Pregnancy, Serum, hCG Quali. NEGATIVE Negative
[2020-03-07 13:58] LABS: Prothrombin Time (Protime)PT. 13.1 SECONDS (11.7-14.9)
[2020-03-07 13:59] LABS: Partial Thromboplast Time 31.1 Seconds (24.1-36.2)
[2020-03-07 19:06] LABS: Probe Check PASS; Specimen Processing Control PASS
--- NOTE | 2020-03-09 14:41 | PCM.HP.BLA ---
History and Physical Date of Admission: 03/12/20 Surgical History and Physical Hilda Schwarz, a 29 year old female 4 0 1 0 4, presents for L/S Bilateral Salpingectomy on March 12, 2020 at 10;45. -- Desires Permanent Sterilization -- She has considered this form of BC for quite some time. Declines LARCs or other non-permanent BC. MEDICATIONS HISTORY: Current medications prescribed by our practice are: 1. Prevacid 30 mg capsule,delayed release, 1 po daily ALLERGIES: No Known Drug Allergies Infections - Chicken pox Illnesses - Depression, ulcers Accidents - None Hospitalizations - Childbirth and see surgery last pap 4 years ago; Review of Systems: GENERAL - Denies fever, or chills SKIN - Denies skin changes EYES - Denies visual changes EARS - Denies difficulty hearing NOSE - Denies nasal congestion or bleeding MOUTH - Denies sore throat or difficulty swallowing NECK - Denies pain or swelling RESPIRATORY - Denies shortness of breath or wheezing CARDIOVASCULAR - Denies palpitations or chest pain GASTROINTESTINAL - Denies nausea, vomiting, diarrhea, constipation GENITOURINARY - Denies dysuria, frequency of urination, incontinence of urine MUSCULOSKELETAL - Denies joint or muscle pain NEUROLOGICAL - Denies localized numbness or weakness PSYCHIATRIC - Denies depression or anxiety ENDOCRINE - Denies heat or cold intolerance, weight loss or gain HEMATO-IMMUNOLOGIC - Denies excesive bleeding with cuts SOCIAL HISTORY: Alcohol Use - drinks occasionally and not while Smoking - used to smoke but quit Diet - no special diet Lifestyle - moderate stress lifestyle and Exercise - active Seat Belt Use - always Employer - unemployed Illicit Drug Use - denies use of street drugs Sexual Activity - Residence - lives with Place of - [place], [place] Spouse-Sig Other Name - Christian Gayle Spouse-Sig Other Occupation - [employer] management Spouse-Sig Other Phone No - [phone] Children Name(s) - Eliu Mohan, Marc Spangler Control - IUD FAMILY HISTORY: MENSTRUAL HISTORY: LMP Known?- Approximate-Month KnownAmount/Duration - 3-4 day, Regularity - spotting, Frequency - variable days, LMP - 02/13/20, Age Onset Menarche - 12 PAST PREGNANCIES: Total Pregnancies - 5; Full Term Pregnancies - 4; Premature - 0; Abortions, Induced - 0; Abortions, Spontaneous - 1; Ectopics - 0; Multiple Births - 0; Living Children - 4 SURGICAL HISTORY: 1. oral ulcer 2013 PHYSICAL EXAM BP- 110/88 Sitting, Right arm, regular cuff Temp- 98.4 Taken Orally Weight- 167.08532 lbs Height- 60.00 inch BMI:32.84 CONSTITUTIONAL - NAD, well nourished, and well developed SKIN - No rash, lesions, or ulcers HEENT - Normocephalic, PERRLA, EOMI NECK - No nodes, no nuchal rigidity and thyroid normal size and texture LYMPH NODES - Palpation of lymph nodes in neck and groins within normal limits LUNGS - CTA x2 without wheezes, crackles or rales CARDIAC - Regular rate and rhythm without rubs, murmurs, or gallops BREAST - No dominant masses, no tenderness, no axillary adenopathy, no nipple discharge, no skin changes ABDOMEN - Without hepatosplenomegaly, distention, masses, rebound, or guarding; normal bowel sounds; no hernias EXTREMITIES - No edema or calf tenderness NEUROLOGICAL - Cranial nerves II-XII grossly intact PSYCHIATRIC - A and O to time, place, person, mood and affect ASSESSMENT/PLAN: Desires Permanent Sterilization. Plan L/S Bilateral Salpingectomy. Discussed RBAs and all questions answered. Procedure Criteria Procedure Type: Elective COVID Risk Discussion: The surgeon/proceduralist and patient have discussed in detail the risk of exposure to and/or potential harm posed by the COVID-19 virus with having a surgery/procedure at this time versus the risk of delaying the surgery/procedure. It is not possible to know either the risk of delaying the surgery or procedure or chance of getting an infection with perfect accuracy, but a joint decision was made between the patient and the surgeon/proceduralist to proceed at this time with the scheduled surgery/procedure as indicated on the consent form.
[2020-03-12 09:29] VITALS: BP 120/77; PULSE 85; RESP 16; TEMP 36.8; O2SAT 96; BMI 30.6
[2020-03-12] MEDS: Lactated Ringers 1,000 ML 100 ML IV (09:35)
[2020-03-12 09:42] LABS: Internal QC Validated? YES +Cl - CLEAR BKGD; Pregnancy, Urine Negative Negative
--- NOTE | 2020-03-12 10:45 | FALS_PTH ---
PATIENT: SOFY SOTELO LOC: [facility] U#:[id number] AGE/SX: 29/F ROOM: RE03/12/[address]: Dr. Jamison Rees MD : [id number] BED: DIS: 03/12/2020 SPEC #: [id number] RECD: 03/12/20 15:17 STATUS: RAUL STEVEN #: [id number] DAVID: 03/12/20 10:[address]: Jamison Rees DEPT: SURGICAL PATHOLOGY RECD BY: Christiane Anthony ENTERED: 03/13/20 09:42 SP TYPE: FALL TUBES OTHR DR: No Primary Care Phys Tissues: Fallopian tube Procedures: Surgery Specimen Level II Surgery Specimen Level IV HEADER OPERATION: Bilateral laparoscopic salpingectomy PRE-OP DIAGNOSIS: Sterilization TISSUE SUBMITTED: Bilateral fallopian tubes MICROSCOPIC DIAGNOSIS Right and left fallopian tubes, bilateral salpingectomies: Complete cross-sections of fallopian tubes. One fallopian tube with benign paratubal cysts. AM:nikolai 03/14/20 MICROSCOPIC DESCRIPTION Slides are reviewed. GROSS DESCRIPTION Received in fixative is one container labeled with the patient's name and designated bilateral fallopian tubes. The specimen consists of bilateral fallopian tubes including fimbrial ends measuring 5 cm in length and up to 0.5 cm in diameter and 6 cm in length and up to 0.5 cm in diameter. The fallopian tubes are not identified as right or left. Sections reveal unremarkable cut surfaces. Power Screwdriver Operator sections are submitted in two cassettes with each cassette containing one fallopian tube. / SJ:nikolai 03/13/20 TC:5 CPT: 26899, 03245
--- NOTE | 2020-03-12 11:35 | PCM.OPRPT ---
Report of Operation Date of Procedure: 03/12/20 Pre-Operative Diagnosis: Desires Permanent Sterilization Post-Operative Diagnosis: Desires Permanent Sterilization Surgery/Procedure Performed:: Laparoscopic Bilateral Salpingectomy Description of Surgical Findings:: 8 cm uterus with normal-appearing fallopian tubes and ovaries. IUD string in place. Type of Anesthesia:: General Anesthesiologist: Cornelius Fang Specimen's removed: Bilateral fallopian tubes Estimated Blood Loss (mL): Minimal Fluids Replaced: Crystalloid Description of Procedure: Surgeon: Jamison Rees MD, FACOG Indications: This is a 29 year old patient who has the above diagnosis. She has considered sterilization for quite some time. She is aware of the permanent nature of the procedure, the failure rate of 1-2%, and the availability of other nonpermanent control options. All questions were answered to consider the patient well-informed. Procedure: The patient was taken to the operating room where after induction of general anesthesia, she was placed in the dorsolithotomy position and prepped and draped in the usual sterile fashion. The bladder was drained of approximately 50 cc of clear yellow urine with a catheter. Anterior cervix was grasped with the tenaculum. Conn cannula was placed and attention was turned toward the laparoscopic portion of the procedure. Approximately 20 cc of half percent ropivacaine was injected subumbilically, suprapubically and midway between. A 5 mm bladeless trocar was placed subumbilically and intraperitoneal placement confirmed. After CO2 insufflation was complete, a 5 mm bladeless trocar was introduced suprapubically. The above findings were noted. A 5 mm bladeless port was then placed midway between these 2 ports for tubal manipulation. Each fallopian tube was identified to its fimbriated end and an Enseal device was used to divide the mesosalpinx to the uterus. Tubes were removed through the lower 5 mm port. The peritoneal cavity and upper abdomen were examined and noted to be normal. Photographs were taken. Laparoscopic instruments with as much CO2 gas as possible were removed and incisions were closed with interrupted 4-0 Monocryl suture. Steri-Strips placed across the incision. Vaginal instruments were removed. The patient tolerated the procedure well was taken to recovery room in satisfactory condition and sponge instrument and needle counts were all reportedly correct. Estimated blood loss for the case was minimal. There were no apparent complications of the surgery. Specimens to pathology was bilateral tubes Grafts/Implants Used: None - Complications None - Admit VTE Documentation VTE Present on Admission: Yes VTE Mechan Device Prophylaxis: SCD's
--- NOTE | 2020-03-12 11:38 | DCINST_ITS ---
Discharge Diet: No Restrictions - Increase fluid intake for the next 48 hours. Discharge Activity: Return to Normal Activity, May Drive - when you are no longer taking pain/narcotic medicines., May Shower, May Take a Tub Bath May resume sexual activity in: 2 weeks Additional Activity Instructions:: Ambulate often the next week after surgery. Nothing in the vagina for 5 days. Call your doctor if your incision/area has: Continuous Slow Oozing, Sudden Increased Bleeding, Increased Pain/ Swelling, Increased Redness, Foul Smelling Discharge Call your doctor if you observe: Fever of 101 or Higher, Inability to urinate, Inability to have a bowel movement, Using more than one pad per hour Allergies/Adverse Reactions: Allergies No Known Allergies Allergy (Verified 03/12/20 09:14) Medications to take at Discharge Omeprazole [Prilosec] 20 mg PO DAILY PRN 09/19/19 Oxycodone [Oxyir] 5 mg PO Q6H PRN PRN 7 Days #5 tablet 03/12/20 The following prescriptions were given: Oxycodone [Oxyir] 5 mg PO Q6H PRN PRN 7 Days #5 tablet PRN Reason: Pain Score 6-10/10 Transmission Status: Sent to [facility] Primary Care Physician: Care Physician,No Primary [Primary Care Provider] - Test Results: Test results from this visit will be discussed in further detail at your follow- up appointment, if applicable. Please Follow Up With: Jamison Rees MD - [phone] When: 2 to 3 weeks
[2020-03-12] MEDS: Ropivacaine 0.5% 30 ML Vial (12:10)
[2020-03-12 12:31] VITALS: BP 120/77; BP 127/78; PULSE 83; RESP 16; TEMP 36.2; O2SAT 98
[2020-03-12 12:45] VITALS: BP 113/78; BP 120/77; PULSE 94; RESP 16; O2SAT 99
[2020-03-12 13:00] VITALS: BP 119/84; BP 120/77; PULSE 88; RESP 16; O2SAT 98
[2020-03-12 13:02] VITALS: BP 113/74; BP 120/77; PULSE 70; RESP 16; TEMP 36.4; O2SAT 99
[2020-03-12 13:30] VITALS: BP 120/77; BP 131/71; PULSE 67; RESP 18; TEMP 36.5; O2SAT 100
== END 2020-03-12 13:42 | disposition home or self-care (01) ==
LOC: SDC 09:02 → AC 09:02
PROVIDERS: Anesthesiology; Referring Provider Obstetrics & Gynecology; Visit Provider Obstetrics & Gynecology
PROC: (CPT 58661; principal; 2020-03-12 10:30)
DX: Z30.2 Encounter for sterilization (principal); N83.8 Other noninflammatory disorders of ovary, fallopian tube and broad ligament; F32.9 Major depressive disorder, single episode, unspecified; K21.9 Gastro-esophageal reflux disease without esophagitis; Z87.891 Personal history of nicotine dependence
CPT/HCPCS: 00840; 58661; 36415; 81025; 84703; 85027; 85610; 85730; 86850; 86900; 86901; 87635; 88302; 88305; G2023; J7120; C1760; J2405; U0003

== ENCOUNTER → 2022-03-26 | Outpatient (CLI) | payer MEDICAID, SELFPAY ==
--- NOTE | 2022-03-26 12:24 | NEURO ---
NCS and/or EMG Patient Report Ordering Doctor: Marques Jean-Baptiste DATE OF SERVICE: 03/26/22 Hilda presents for electrodiagnostic testing of the upper limbs more prominent in the right side. Electrodiagnostic findings: Right median motor nerve demonstrates normal distal latency, amplitude and conduction velocity. Normal left median motor response. Normal ulnar motor response bilaterally. Normal median and ulnar F waves. Prolonged right median sensory latency at the wrist. Normal left median sensory response. Normal ulnar and radial sensory responses. On needle EMG, all muscles tested in the upper limbs, as well as the cervical paraspinals, showed no evidence of denervation with normal motor unit action potentials. Electrodiagnostic impression: This is an abnormal study. 1. Electrodiagnostic findings demonstrate right-sided median mononeuropathy. This is consistent with a mild right carpal tunnel syndrome. There is no electrodiagnostic evidence for left carpal tunnel syndrome. 2. No electrodiagnostic evidence noted for cervical radiculopathy
== END | disposition home or self-care (01) ==
LOC: PSN 10:35
PROVIDERS: Referring Provider Orthopaedic Surgery; Visit Provider Orthopaedic Surgery
DX: G56.03 Carpal tunnel syndrome, bilateral upper limbs (principal)
CPT/HCPCS: 95886; 95913

== ENCOUNTER 2022-06-29 12:05 | Emergency (ER) | payer MEDICAID, SELFPAY ==
[2022-06-29 12:06] VITALS: BP 123/81; PULSE 98; RESP 18; TEMP 36.6; O2SAT 98; BMI 30.7
--- NOTE | 2022-06-29 12:20 | RAD_ITS ---
STUDY: X-RAY - LEFT ANKLE REASON FOR EXAM: Female, 31 years old. injury TECHNIQUE: 3 view(s) of the ankle. COMPARISON: None. FINDINGS: Normal visualized distal tibia and fibula. Normal medial and lateral malleoli. Normal tibiotalar articulation and ankle mortise. Normal visualized talus and calcaneus. The visualized subtalar, talonavicular, calcaneocuboid and tarsal articulations are normal. No fracture or displaced bony fragment is present. Mild soft tissue swelling is present around the ankle joint. RAD/Ankle min 3 Views IMPRESSION: Mild soft tissue swelling around ankle joint Electronically Signed: Bassam Heard MD at 12:56 EDT ,
--- NOTE | 2022-06-29 12:36 | EDS_ITS ---
HPI History of Present Illness Chief Complaint: Lower Extremity Injury Informant: patient Occured/Mechanism Comment: twisted ankle Onset/Context/Timing Onset: Yesterday Context: Sudden Onset Timing: Continuous Quality of Pain: Aching Location: left ankle Current Severity: Mild Maximum Severity: Mild Worsened by: walking Relieved by: resting Associated Symptoms Associated Symptoms: Negative for Parasthesia, Weakness or Loss of Funtion Narrative Narrative: Patient stepped off of a elevated concrete pad outside yesterday and twisted her ankle inverting it, pain in the lateral left ankle but really has not been bad, she states she would not have come but she is all extensive bruising that concerned her. Has been able to ambulate. No other injuries. [facility] Medical History Dental abscess Allergy/AdvReac Type Severity Reaction Status Date / Time No Known Allergies Allergy Verified 06/29/22 12:05 Surgical History (Updated 06/29/22 @ 12:22 by Vickie Christensen) Tubal ligation status Social History Smoking Status: Former smoker ROS ROS ED Constitutional Constitutional ED: Denies chills or fever(s) Musculoskeletal Musculoskeletal: Reports extremity pain; Denies neck pain Integumentary Denies Abrasions, rash or wounds Neurologic Neurologic: Denies paresthesias or weakness EXAM Physical Exam Const Vital Signs: 06/29/22 12:06 Temperature 97.8 F Temperature Source Temporal Pulse Rate 98 Respiratory Rate 18 Blood Pressure 123/81 H Blood Pressure Mean 95 Pulse Ox 98 Oxygen Delivery Method Room Air Positive well nourished and well developed General Appearance ED: well developed and NAD Neck full ROM and supple Back/Spine normal ROM and normal to inspection Extremity Extremity Narrative: Significant amount of ecchymosis laterally about the left ankle and lateral aspect of the foot. The only bony tenderness she has in his general area is couple centimeters proximal to the lateral malleolus which itself is nontender. There are no deformities. Joint is stable with applying lateral forces to the foot/talus. No medial malleolus tenderness. No other fibular tenderness including the head. No tenderness to the base of the fifth metatarsal otherwise in the foot, there is also some ecchymosis at the base of the second toe, all of this area and the entire forefoot is nontender. Neuro oriented x3, no focal motor deficits and no sensory deficits noted Sensorium / Orientation: alert Psych mental status grossly normal and thought process normal Skin no wounds Rashes: no rashes MDM MDM MDM Narrative Medical decision making narrative: Three-view x-ray series of the left ankle on my interpretation is negative for any fracture dislocation. The mortise appears to be intact and normal. My suspicion is that all of this bruising is due to some type of soft tissue tear. She unlikely ruptured a ligament since she has a stable joint and she is not having a lot of pain. Supportive care advised, she states she has a brace I will offer her an Aircast but it sounds like the brace should be fine since she is not having much trouble getting around, and follow-up with orthopedics in 1 to 2 weeks if not improving. Discharge Plan Triage Chief Complaint: Lower Extremity Injury ED Provider: Marques Cortes Dx/Rx/DC Orders Clinical Impression: Left ankle sprain Instructions: ED Ankle Sprain (Adult) Primary Care Provider: Care Physician,No Primary Referrals: Luis Manuel Mar MD [Med Staff - Active Staff] - 10-14 Days if not better Care Physician,No Primary [Primary Care Provider] - Disposition Disposition: Home, Self Care
== END 2022-06-29 12:43 | disposition home or self-care (01) ==
PROVIDERS: Emergency Provider Emergency Medicine; Visit Provider Emergency Medicine
DX: S93.402A Sprain of unspecified ligament of left ankle, initial encounter (principal); X50.1XXA Overexertion from prolonged static or awkward postures, initial encounter; Z87.891 Personal history of nicotine dependence
CPT/HCPCS: 73610; 99282

== ENCOUNTER 2023-10-12 05:32 | Inpatient (IN) | payer MEDICAID, SELFPAY ==
[2023-10-12] VITALS (24 sets, daily range): BP systolic 97–124; BP diastolic 55–85; PULSE 81–112; RESP 14–18; TEMP 35.7–36.9; O2SAT 92–100; BMI 30.6
[2023-10-12] MEDS: 0.9% Saline Lock 10 ML Syringe IV ×2 (06:29→20:56)
[2023-10-12] MEDS: 0.9% Normal Saline (1000mL) 1,000 ML 100 ML IV ×2 (06:30→18:46)
--- NOTE | 2023-10-12 07:21 | US_ITS ---
STUDY: ABDOMINAL ULTRASOUND - RIGHT UPPER QUADRANT REASON FOR VISIT: Female, 33 years old . 3 day history of right upper quadrant pain. Elevated liver function tests. TECHNIQUE: Ultrasound evaluation of the right upper quadrant was performed with real-time and static caro-scale imaging. TECHNICAL QUALITY: Adequate. COMPARISON: None. FINDINGS: Liver: The liver measures 14.3 cm. There is increased echogenicity consistent with fatty infiltration. The bile ducts are within normal limits. There is hepatic color flow. The direction of portal flow is hepatopetal. There is no demonstrated mass lesion. Gallbladder: Normal distended gallbladder. The gallbladder wall measures 2.7 mm. There is a positive sonographic Diallo''s sign. There is no pericholecystic fluid. There are multiple echogenic structures within the gallbladder, consistent with multiple gallstones. Common Bile Duct (C.B.D.): The common bile duct measures 6 mm. Pancreas: Normal size of the head, body and tail of the pancreas. There is normal echogenicity of the pancreas. There is no demonstrated pancreatic mass or cyst. Right Kidney: Normal size of the right kidney. The right kidney measures 9.9 cm x 4.8 cm x 5.2 cm. Normal renal cortex. The right cortex measures 1.3 cm. There is no demonstrated renal mass or cyst. There is no right hydronephrosis. US/Abdomen Limited IMPRESSION: Diffuse fatty infiltration of the liver. Multiple gallstones. Positive sonographic Diallo''s sign. Electronically Signed: Alex York MD at 10:11 EST ,
[2023-10-12 07:28] LABS: Absolute Lymphocyte Count 1.52 X10^3/uL (0.83-4.51); Absolute Neutrophil Count 4.2 X10^3/uL (2.0-7.7); Basophil# 0.04 X10^3/uL; Basophil% 0.6 % (0-1); Eosinophil# 0.06 X10^3/uL; Hematocrit 36.5 % (37-47); Hemoglobin 11.9 g/dL (12.0-15.0); Lymphocyte # 1.52 X10^3/ul (0.83-4.51); Lymphocyte % 24.4 % (19-41); Mean Corp Hgb Conc 32.6 g/dL (32-36); Mean Corpuscular Hgb 30.4 pg (27.0-32.0); Mean Corpuscular Volume 93.1 fL (81-99); Mean Platelet Vol. 10.1 fl (6.2-12.0); Monocyte# 0.37 X10^3/uL; Monocyte% 5.9 % (0-10); NRBC Flagged by Analyzer 0 % (0-5); Neutrophil # 4.22 X10^3/uL (2.7-7.7); Neutrophil % 67.8 % (47-70); Platelet Count 269 K/mm3 (150-450); RBC Distribution Width CV 12.2 % (11.6-14.6); RBC Distribution Width SD 41.7 fl (35.1-43.9); Red Blood Count 3.92 M/mm3 (4.2-5.4); White Blood Count 6.2 K/mm3 (4.4-11.0)
[2023-10-12 07:59] LABS: ALB/GLOB Ratio 0.9 RATIO (0.9-2.4); AST(SGOT) 234 U/L (15-37); Alanine Aminotransfer ALT/SGPT 426 U/L (13-56); Alkaline Phosphatase 171 U/L (45-117); Anion Gap 4 (5-15); BUN 9 mg/dL (7-18); BUN/Creat Ratio 10.7 RATIO (10-20); Calcium,Total 7.7 mg/dL (8.5-10.1); Chloride 114 mmol/L (98-107); Creatinine, Serum 0.84 mg/dL (0.55-1.02); EST Glomerular Filtration Rate 82 mL/min (>60); Est Glom Filt Rate - Afr Amer 99 mL/min (>60); Estimated Creatinine Clearance 89.22 ml/min; Globulin 3.5 g/dL (2.2-4.2); Glucose 98 mg/dL (74-106); Lipase 21 U/L (13-75); Potassium 3.9 mmol/L (3.5-5.1); Protein, Total 6.5 g/dL (6.4-8.2); Sodium Level 140 mmol/L (136-145)
--- NOTE | 2023-10-12 10:08 | HP.PCM.SX_ITS ---
HPI - General General Date of Admission: 10/12/23 HPI Narrative SOFY SOTELO, is a 33 F who presents as a transfer from outside hospital with choledocholithiasis. The patient says she has been battling this and having attacks for the past few months. She says that with this attack came nausea and vomiting and severe pain that radiates to the back. She said her pain is better this morning. She denies any nausea or vomiting since coming to this hospital. She denies any fevers or chills. She says she was recently admitted to an outside hospital and they treated her for a liver infection with steroids. COUNTS INCLUDE 234 BEDS AT THE [facility] Medical History Dental abscess Home Medications albuterol sulfate 90 mcg/actuation aerosol inhaler 2 puff inhalation Q4H PRN shortness of breath or wheezing 10/12/23 [History Last Taken Unknown] bupropion HCl 150 mg 24 hr tablet, extended release 150 mg PO DAILY 10/12/23 [History Last Taken 10/11/23] ergocalciferol (vitamin D2) 1,250 mcg (50,000 unit) capsule 1,250 mcg PO QWEEK supplement 10/12/23 [History Last Taken Unknown] hydroxyzine HCl 50 mg tablet 50 mg PO DAILY PRN 10/12/23 [History Last Taken Unknown] pantoprazole 40 mg tablet,delayed release 40 mg PO DAILY 10/12/23 [History Last Taken Unknown] Allergy/AdvReac Type Severity Reaction Status Date / Time No Known Allergies Allergy Verified 06/29/22 12:05 Surgical History Tubal ligation status Social History Smoking Status: Former smoker ROS Constitutional Constitutional: Denies anorexia, chills or fatigue Eyes Eyes: Denies blurry vision ENT HEENT: Denies abnormal hearing Cardiovascular Cardiovascular: Denies chest pain Respiratory/Chest Respiratory/Chest: Denies cough or dyspnea Gastrointestinal Gastrointestinal: Reports abdominal pain, nausea and vomiting; Denies change in bowel habits or coffee ground emesis Genitourinary Genitourinary: Denies change in urinary stream Musculoskeletal Musculoskeletal: Denies abnormal gait Neurologic Neurologic: Denies abnormal gait Psychiatric Psychiatric: Denies anxiety Endocrine Endocrinology: Denies flushing Vital Signs Vital Signs Vital Signs: 10/12/23 05:30 10/12/23 08:21 Temperature 98.4 F Temperature Source Oral Pulse Rate 85 Respiratory Rate 18 Respiratory Effort Normal Non-Labored Respiratory Depth Normal Respiratory Pattern Normal Blood Pressure 115/83 H Blood Pressure Mean 93 Pulse Ox 97 Oxygen Delivery Method Room Air Room Air Weight Weight: 167 lb 8.821 oz Body Mass Index (BMI) 30.6 Physical Exam Const oriented x3 and no apparent distress Resp normal respiratory effort GI soft to palpation and non-tender Results Lab / Micro Data 10/12/23 07:21 10/12/23 07:21 Labs: Laboratory Results - last 24 hr 10/12/23 07:21: WBC 6.2, RBC 3.92 L, Hgb 11.9 L, Hct 36.5 L, MCV 93.1, MCH 30.4, MCHC 32.6, RDW Std Deviation 41.7, RDW Coeff of Lizet 12.2, Plt Count 269, MPV 10.1, Immature Gran % (Auto) 0.300, Neut % (Auto) 67.8, Lymph % (Auto) 24.4, [place] % (Auto) 5.9, Eos % (Auto) 1.0, Baso % (Auto) 0.6, Absolute Neuts (auto) 4.2, Absolute Lymphs (auto) 1.52, Nucleated RBC % 0, Sodium 140, Potassium 3.9, Chloride 114 H, Carbon Dioxide 22.0, Anion Gap 4 L, BUN 9, Creatinine 0.84, Estim Creat Clear Calc 89.22, Est GFR (MDRD) Af Amer 99, Est GFR (MDRD) Non-Af 82, BUN/Creatinine Ratio 10.7, Glucose 98, Calcium 7.7 L, Total Bilirubin 2.20 H , AST 234 H, ALT 426 H, Alkaline Phosphatase 171 H, Total Protein 6.5, Albumin 3.0 L, Globulin 3.5, Albumin/Globulin Ratio 0.9, Lipase 21 Assessment & Plan Assessment/Plan (1) Obstructive jaundice: PLAN: The patient had elevated LFTs at outside hospital. I performed an ultrasound here that did confirm gallstones. Patient had a CT scan there that Suspected gallstones. Once she got here I started her on antibiotics and IV fluids. I rechecked her LFTs this morning. Her LFTs have all decreased. She also says that she has not had much severe pain since being transferred. It is likely that the stone is either removed or passed. I recommend starting with laparoscopic cholecystectomy with cholangiograms to both relieve the issue of the cholelithiasis and to evaluate common bile duct. If the cholangiogram shows retained stone in the common bile duct I will consult GI for ERCP. I discussed laparoscopic cholecystectomy with her in detail. I discussed the procedure in detail with the patient. I discussed the risks, benefits, and alternatives of the procedure. I discussed the risks including but not limited to bleeding, infection, injury to surrounding organs such as the liver, bile duct, bowels. I did discuss the possibility of having to convert to an open procedure as well as the possibility that if any injuries occurred this may necessitate further surgery at a tertiary care center. Brandon Overton MD Pager: [facility] [address] [place] [address] [address] [place] [address] Office:
[2023-10-12] MEDS: Morphine 2 MG/ML Syringe IV ×2 (10:21→20:55)
--- NOTE | 2023-10-12 12:30 | RAD_ITS ---
STUDY: INTRAOPERATIVE CHOLANGIOGRAM. REASON FOR EXAM: Female, 33 years old. Laparoscopic cholecystectomy. FLUOROSCOPY TIME (if supplied): ( 29 seconds ) minutes/seconds. 8.52 mGy. TECHNIQUE: An intraoperative cholangiogram was performed by the surgeon. Imaging was submitted. COMPARISON: None. FINDINGS: The intrahepatic biliary ducts are unremarkable. Tiny filling defect is seen in the distal portion of the common bile duct. No flow contrast is seen entering the duodenum. A small retained distal common bile duct stone should be ruled out. RAD/Cholangiogram/ O R,Initial IMPRESSION: Tiny filling defect in the distal portion of the common bile duct with the nonvisualization of contrast entering the duodenum. A distal common bile duct stone should be ruled out. Electronically Signed: Alex York MD at 14:07 EST ,
--- NOTE | 2023-10-12 12:40 | GALL_PTH ---
PATHOLOGY RESULTS PATIENT: SOFY SOTELO LOC: [facility] U#:[id number] AGE/SX: 33/F ROOM: [facility] RE10/12/[address]: Dr. Brandon Overton MD : 1990 BED: 1 DIS: 10/13/2023 SPEC #: [id number] RECD: 10/12/23 14:51 STATUS: RAUL HARRIS #: [id number] DAVID: 10/12/23 12:[address]: Brandon Overton DEPT: SURGICAL PATHOLOGY RECD BY: Nieves Alcantara ENTERED: 10/13/23 11:59 SP TYPE: MILENA STREETER DR: OLGA Brown Tissues: Gallbladder, NOS Procedures: Surgery Specimen Level III HEADER OPERATION: Laparoscopic cholecystectomy with IOC PRE-OP DIAGNOSIS: Choledocholithiasis TISSUE SUBMITTED: Gallbladder MICROSCOPIC DIAGNOSIS Gallbladder, cholecystectomy: Chronic cholecystitis, cholelithiasis and focal cholesterolosis. A benign pericystic lymph node with reactive changes. KAYLAN:nikolai 10/14/2023 MICROSCOPIC DESCRIPTION Slides are reviewed. GROSS DESCRIPTION Received is one container labeled with the patient's name and designated gallbladder. The specimen consists of a gallbladder measuring 12.0 cm in length and up to 4.0 cm in diameter. The external surface is pink-hernandez, smooth and glistening for the most part. Focally it is granular, hemorrhagic and contains cautery artifact. The gallbladder contains green-yellow mucoid bile and multiple yellow, mulberry stones measuring in aggregate 2.5 x 2.0 x 0.3 cm and 0.2 to 0.4 cm in greatest dimension. The mucosa is bile-stained and without any mass lesions. The gallbladder wall measures 0.1 cm in thickness. Also present close to cystic duct is an ovoid nodule, possible lymph node, measuring 0.5 cm in greatest dimension. Public Speaking Coach sections from the gallbladder, cystic duct and possible lymph node are submitted in one cassette. / KAYLAN:nikolai 10/13/2023 TC:3 CPT: 86112
[2023-10-12] MEDS: Bupivacaine 0.25% 30 ML Vial (13:15)
[2023-10-12] MEDS: Lactated Ringers 1,000 ML 15 ML IV ×2 (13:35→16:01)
--- NOTE | 2023-10-12 14:01 | OP.PCM_ITS ---
Report of Operation Date of Procedure: 10/12/23 Pre-Operative Diagnosis: Choledocholithiasis and biliary obstruction Post-Operative Diagnosis: Same Surgery/Procedure Performed:: Laparoscopic cholecystectomy with cholangiograms Type of Anesthesia: General/Regional Specimen's removed: Gallbladder Estimated Blood Loss (mL): 10 Description of Procedure: After obtaining informed consent patient was brought back to the operating room. General anesthesia was induced. The abdomen was prepped and draped in usual sterile fashion. A small midline incision was made superior to the umbilicus and deepened to the level of fascia. The fascia was elevated and incised. Next the peritoneum was elevated and incised in the same fashion. Finger sweep was performed and the Pearson trocar was placed into the abdomen. The balloon was inflated. The abdomen was inflated to 15 mmHg. Next a camera was introduced into the abdomen and the abdomen was inspected. Next under direct visualization three 5-mm ports were placed one subxiphoid and 2 subcostal. Next the gallbladder was elevated and retracted toward the right shoulder. The peritoneum was stripped from the gallbladder. The infundibulum was located and retracted laterally. Next the triangle of Calot was dissected and the cystic duct and cystic artery were identified. Cholangiograms were performed. The Crow clamp was used to clamp across the infundibulum and the catheter needle was inserted into the gallbladder. Under fluoroscopy contrast was instilled into the gallbladder and the common duct, cystic duct as well as proximal hepatic ducts were identified. There was good filling of the duodenum. There was no flow of contrast into the duodenum. There appeared to be a meniscus sign indicating a stone in the distal common bile duct. The proximal hepatic ducts appeared normal. The clamp was removed as well as the needle and the infundibulum was grasped once more. Three hemolock clips were placed across the cystic duct. The cystic duct was then divided leaving 2 clips on the stump. The cystic artery was clipped and divided in the same fashion. The hook cautery was then used to take the gallbladder off of the gallbladder bed. Hemostasis was obtained. Gallbladder fossa was irrigated and no active bleeding or bile leakage was noted. Next the camera was introduced in the subxiphoid port. An Endopouch bag was placed through the umbilical port and the gallbladder was placed into it. The gallbladder was then removed through the umbilical incision. The camera was then reinserted through the umbilical port. The gallbladder fossa was inspected once more and noted to be hemostatic with no leaking bile. The abdomen was suctioned dry. The 5 mm ports were removed under direct visualization. The umbilical port was then removed and the air was removed from the abdomen. Next using an 0 Vicryl suture the umbilical fascia was closed in a [id number] fashion. The umbilical port site was irrigated local anesthetic was administered to all the incisions. All the incisions were closed with interrupted subcuticular 4-0 Monocryl sutures followed by Steri- Strips and dressings. The patient was awoken and taken to PACU in stable condition. GI will be consulted for ERCP. Admit VTE Documentation VTE Mechan Device Prophylaxis: SCD's
--- NOTE | 2023-10-12 15:59 | EX.PCM.CON.G ---
HPI Consult Data Date of Consult: 10/12/23 HPI Narrative Reason for Consultation: Choledocholithiasis HPI Narrative: SOFY SOTELO, is a 33 F who presents from an outside hospital with obstructive jaundice secondary to choledocholithiasis and intermittent episodes of acute cholecystitis. She has a past medical history of being a former smoker and depression. She takes Buproprion 150 mg a day. She had been on pantoprazole after being diagnosed with atypical gastroesophageal reflux disease. When she arrived at the outside hospital she was discovered to have labs consistent with obstructive jaundice and cholestatic hepatitis. Upon transfer she was normotensive at 110/60 with a pulse ranging from 105-115. Respiratory rate was 16 and oxygen saturation was 95% on room air Laboratory analysis: White blood cell count of 6.2, hemoglobin 11.9, MCV 93.1, platelet count of 269. Liver enzymes had a total bilirubin of 2.2, AST 234, ALT of 426, alkaline phosphatase of 171, albumin of 3. Abdominal ultrasound was as follows : liver: The liver measures 14.3 cm. There is increased echogenicity consistent with fatty infiltration. The bile ducts are within normal limits. There is hepatic color flow. The direction of portal flow is hepatopetal. There is no demonstrated mass lesion. Gallbladder: Normal distended gallbladder. The gallbladder wall measures 2.7 mm. There is a positive sonographic Diallo''s sign. There is no pericholecystic fluid. There are multiple echogenic structures within the gallbladder, consistent with multiple gallstones. Common Bile Duct (C.B.D.): The common bile duct measures 6 mm. Pancreas: Normal size of the head, body and tail of the pancreas. There is normal echogenicity of the pancreas. There is no demonstrated pancreatic mass or cyst. She underwent elective cholecystectomy today. And there was a filling defect seen in the distal common bile duct so I was consulted for therapeutic ERCP [facility] Medical History Dental abscess Home Medications albuterol sulfate 90 mcg/actuation aerosol inhaler 2 puff inhalation Q4H PRN shortness of breath or wheezing 10/12/23 [History Last Taken Unknown] bupropion HCl 150 mg 24 hr tablet, extended release 150 mg PO DAILY 10/12/23 [History Last Taken 10/11/23] ergocalciferol (vitamin D2) 1,250 mcg (50,000 unit) capsule 1,250 mcg PO QWEEK supplement 10/12/23 [History Last Taken Unknown] hydroxyzine HCl 50 mg tablet 50 mg PO DAILY PRN 10/12/23 [History Last Taken Unknown] pantoprazole 40 mg tablet,delayed release 40 mg PO DAILY 10/12/23 [History Last Taken Unknown] Allergy/AdvReac Type Severity Reaction Status Date / Time No Known Allergies Allergy Verified 06/29/22 12:05 Surgical History Tubal ligation status Social History Smoking Status: Former smoker ROS Constitutional Constitutional: Denies anorexia, chills or fatigue Eyes Eyes: Denies blurry vision ENT HEENT: Denies abnormal hearing Cardiovascular Cardiovascular: Denies chest pain Respiratory/Chest Respiratory/Chest: Denies cough or dyspnea Gastrointestinal Gastrointestinal: Reports abdominal pain, nausea and vomiting; Denies change in bowel habits or coffee ground emesis Genitourinary Genitourinary: Denies change in urinary stream Musculoskeletal Musculoskeletal: Denies abnormal gait Neurologic Neurologic: Denies abnormal gait Psychiatric Psychiatric: Denies anxiety Endocrine Endocrinology: Denies flushing Physical Exam Const oriented x3 and no apparent distress Resp normal respiratory effort GI soft to palpation and non-tender Lab / Micro Data 10/12/23 07:21 10/12/23 07:21 Labs: Laboratory Results - last 24 hr 10/12/23 07:21: WBC 6.2, RBC 3.92 L, Hgb 11.9 L, Hct 36.5 L, MCV 93.1, MCH 30.4, MCHC 32.6, RDW Std Deviation 41.7, RDW Coeff of Lizet 12.2, Plt Count 269, MPV 10.1, Immature Gran % (Auto) 0.300, Neut % (Auto) 67.8, Lymph % (Auto) 24.4, [place] % (Auto) 5.9, Eos % (Auto) 1.0, Baso % (Auto) 0.6, Absolute Neuts (auto) 4.2, Absolute Lymphs (auto) 1.52, Nucleated RBC % 0, Sodium 140, Potassium 3.9, Chloride 114 H, Carbon Dioxide 22.0, Anion Gap 4 L, BUN 9, Creatinine 0.84, Estim Creat Clear Calc 89.22, Est GFR (MDRD) Af Amer 99, Est GFR (MDRD) Non-Af 82, BUN/Creatinine Ratio 10.7, Glucose 98, Calcium 7.7 L, Total Bilirubin 2.20 H, AST 234 H, ALT 426 H, Alkaline Phosphatase 171 H, Total Protein 6.5, Albumin 3.0 L, Globulin 3.5, Albumin/Globulin Ratio 0.9, Lipase 21 Imaging Radiology Impression Abdomen Ultrasound 10/12/23 07:21 IMPRESSION: Diffuse fatty infiltration of the liver. Multiple gallstones. Positive sonographic Diallo''s sign. Electronically Signed: Alex York MD at 10:11 EST , Cholangiogram 10/12/23 12:30 IMPRESSION: Tiny filling defect in the distal portion of the common bile duct with the nonvisualization of contrast entering the duodenum. A distal common bile duct stone should be ruled out. Electronically Signed: Alex York MD at 14:07 EST , Assessment & Plan Assessment/Plan (1) Obstructive jaundice: PLAN: 33-year-old presents with acute on chronic abdominal pain discovered to have cholecystitis plus choledocholithiasis causing obstructive jaundice status post cholecystectomy with intraoperative cholangiogram showing distal common bile duct filling defect. She will undergo ERCP. She and her mother was explained alternatives, risk, benefits include not withstanding bleeding, infection, sepsis, perforation, post ERCP pancreatitis and she elected to have this procedure. She will have an ASA of 2 for the procedure. Charges/Coding Visit Charges Inpatient E&M: 03615 Init Hosp L2
--- NOTE | 2023-10-12 16:25 | RAD_ITS ---
CLINICAL HISTORY: pain Date: 10/12/2023 4:46 PM Date of : 1990 Images assigned to this order were provided in conjunction with a surgical procedure performed in the operating room/procedural suite. Please see operative report for details. Fluoroscopic images: 6 Fluoroscopic time: 76.8 seconds Cumulative dose: NA, mGym2; 18.27; mGy Intraoperative imaging documents retrograde access to the biliary ductal system via ERCP with opacification of the ductal system, there is evidence of balloon sweep and placement of a biliary stent projecting in normal position. No persistent filling defects or obstruction noted. Refer to procedural note for complete description. Impressions: 1. ERCP examination documenting balloon sweep and stent placement without fixed filling defects noted. Electronically Signed: Venu Mariano MD at 19:41 EST , RAD/ERCP Biliary/Pancreas IMPRESSION: undefined
--- NOTE | 2023-10-12 17:01 | OP.CCLET_ITS ---
10/12/2023 No Primary Care Physician Re : ERCP procedure for Hilda Gayle Dear Care Physician This procedure was performed on Thursday, October 12, 2023. My impressions and recommendations are as follows: Impressions : - The entire main bile duct was dilated, with a stone causing an obstruction. - Choledocholithiasis was found. Complete removal was accomplished by biliary sphincterotomy and balloon extraction. - A biliary sphincterotomy was performed. - The biliary tree was swept. - One temporary stent was placed into the common bile duct. Recommendations : My findings are described in the full procedure note, which is enclosed. If I can be of further assistance, please feel free to contact me at . Sincerely, Joao Hart, 10/12/2023 5:01:15 PM This report has been signed electronically.
--- NOTE | 2023-10-12 17:01 | OP.ERCP_ITS ---
Patient Name: Hilda Gayle Procedure Date: 10/12/2023 3:46 PM Date of : 1990 Age: 33 Procedure: ERCP Indications: Bile duct stone(s) Providers: Joao Hart DO Medicines: Monitored Anesthesia Care Patient Profile: This is a 33 year old female. Refer to note in patient chart for documentation of history and physical. Patient has symptoms of acute right upper quadrant abdominal pain. She is status post laparoscopic cholecystectomy recently. Complications: No immediate complications. Procedure: Pre-Anesthesia Assessment: - Prior to the procedure, a History and Physical was performed, and patient medications and allergies were reviewed. The patient is competent. The risks and benefits of the procedure and the sedation options and risks were discussed with the patient. All questions were answered and informed consent was obtained. Patient identification and proposed procedure were verified by the physician. Mental Status Examination: normal. Prophylactic Antibiotics: The patient does not require prophylactic antibiotics. Prior Anticoagulants: The patient has taken no anticoagulant or antiplatelet agents. ASA Grade Assessment: II - A patient with mild systemic disease. After reviewing the risks and benefits, the patient was deemed in satisfactory condition to undergo the procedure. The anesthesia plan was to use monitored anesthesia care (MAC). Immediately prior to administration of medications, the patient was re-assessed for adequacy to receive sedatives. The heart rate, respiratory rate, oxygen saturations, blood pressure, adequacy of pulmonary ventilation, and response to care were monitored throughout the procedure. The physical status of the patient was re-assessed after the procedure. After obtaining informed consent, the scope was passed under direct vision. Throughout the procedure, the patient's blood pressure, pulse, and oxygen saturations were monitored continuously. The Duodenoscope was introduced through the mouth, and advanced to the duodenum and used to inject contrast into the bile duct and ventral pancreatic duct. The ERCP was accomplished without difficulty. The patient tolerated the procedure well. Scope In: 4:29:26 PM Scope Out: 4:55:29 PM Total Procedure Duration Time 0 hours 26 minutes 3 seconds Findings: The nurse assessor film was normal. The esophagus was successfully intubated under direct vision. The scope was advanced to a normal major papilla in the descending duodenum without detailed examination of the pharynx, larynx and associated structures, and upper GI tract. The upper GI tract was grossly normal. The bile duct was deeply cannulated with the short-nosed traction sphincterotome. Contrast was injected. I personally interpreted the bile duct images. There was brisk flow of contrast through the ducts. Image quality was excellent. Contrast extended to the entire biliary tree. Opacification of the entire biliary tree except for the cystic duct and gallbladder and main bile duct was successful. The maximum diameter of the ducts was 8 mm. The lower third of the main bile duct contained two stones, the largest of which was 4 mm in diameter. The main bile duct was diffusely dilated, with a stone causing an obstruction. The largest diameter was 8 mm. Placement of a 0.035 inch x 260 cm angled Hydra Jagwire into the biliary tree was attempted. This passed successfully. A 5 mm biliary sphincterotomy was made with a traction (standard) sphincterotome using ERBE electrocautery. There was no post-sphincterotomy bleeding. The biliary tree was swept with a 12 mm balloon starting at the bifurcation. Sludge was swept from the duct. All stones were removed. One 10 Fr by 5 cm temporary stent with a single external flap and a single internal flap was placed 5 cm into the common bile duct. Bile flowed through the stent. The stent was in good position. Impression: - The entire main bile duct was dilated, with a stone causing an obstruction. - Choledocholithiasis was found. Complete removal was accomplished by biliary sphincterotomy and balloon extraction. - A biliary sphincterotomy was performed. - The biliary tree was swept. - One temporary stent was placed into the common bile duct. Procedure Code(s): --- Professional --- 82715, Endoscopic retrograde cholangiopancreatography (ERCP); with placement of endoscopic stent into biliary or pancreatic duct, including pre- and post-dilation and guide wire passage, when performed, including sphincterotomy, when performed, each stent [id number], Endoscopic retrograde cholangiopancreatography (ERCP); with removal of calculi/debris from biliary/pancreatic duct(s) 38402, 26, Endoscopic catheterization of the biliary ductal system, radiological supervision and interpretation CPT copyright 2021 [employer]. All rights reserved. The codes documented in this report are preliminary and upon business intelligence analyst review may be revised to meet current compliance requirements. Joao Hart DO 10/12/2023 5:01:15 PM This report has been signed electronically. Number of Addenda: 0 Note Initiated On: 10/12/2023 3:46 PM
[2023-10-12] MEDS: Metoclopramide 10 MG/2 ML Vial 5 MG IV ×2 (18:42→23:08)
[2023-10-12] MEDS: Piperacil/Tazobactam 3.375 GM in 0.9% Normal Saline (50mL MB+) 50 ML IV ×2 (18:46→23:08)
[2023-10-12] MEDS: Lactated Ringers 1,000 ML 250 ML IV (21:06)
[2023-10-12] MEDS: Pantoprazole Sodium 40 MG in 0.9% Normal Saline (100mL MB+) 100 ML 330 MG IV (21:06)
[2023-10-13] MEDS: Lactated Ringers 1,000 ML 250 ML IV ×2 (00:49→04:52)
[2023-10-13 04:22] VITALS: BP 111/74; PULSE 88; RESP 15; TEMP 36.4; O2SAT 97
[2023-10-13] MEDS: Morphine 2 MG/ML Syringe IV (04:55)
[2023-10-13] MEDS: Metoclopramide 10 MG/2 ML Vial 5 MG IV (04:57)
[2023-10-13] MEDS: 0.9% Saline Lock 10 ML Syringe IV (05:00)
[2023-10-13] MEDS: Piperacil/Tazobactam 3.375 GM in 0.9% Normal Saline (50mL MB+) 50 ML IV (05:00)
--- NOTE | 2023-10-13 07:10 | PCM.PN.SRG ---
Subjective Subjective Patient feels some mild soreness with him that she is doing well. She tolerated some clears with no nausea or vomiting. Objective Data Objective Data Vital Signs: Vital Signs Temp Pulse Resp BP Pulse Ox O2 Del Method O2 Flow Rate 97.5 F L 88 15 111/74 97 Room Air 2 10/13/23 04:22 10/13/23 04:22 10/13/23 04:22 10/13/23 04:22 10/13/23 04:22 10/13/23 04:22 10/12/23 18:55 Oxygen Flow Rate (L/min) 2 Oxygen Delivery Method Room Air Weight: 167 lb 8.821 oz Body Mass Index (BMI) 30.6 Intake & Output: Intake and Output for Last 24 Hours 10/11/23 10/12/23 10/13/23 23:59 23:59 23:59 Intake Total 2603.42 / 2723.42 2370 / 2370 Output Total 3 / 3 Balance 2603.42 / 2720.42 2367 / 2367 Lab / Micro Data 10/12/23 07:21 10/12/23 07:21 Labs: Laboratory Results - last 24 hr 10/12/23 07:21: WBC 6.2, RBC 3.92 L, Hgb 11.9 L, Hct 36.5 L, MCV 93.1, MCH 30.4, MCHC 32.6, RDW Std Deviation 41.7, RDW Coeff of Lizet 12.2, Plt Count 269, MPV 10.1, Immature Gran % (Auto) 0.300, Neut % (Auto) 67.8, Lymph % (Auto) 24.4, [place] % (Auto) 5.9, Eos % (Auto) 1.0, Baso % (Auto) 0.6, Absolute Neuts (auto) 4.2, Absolute Lymphs (auto) 1.52, Nucleated RBC % 0, Sodium 140, Potassium 3.9, Chloride 114 H, Carbon Dioxide 22.0, Anion Gap 4 L, BUN 9, Creatinine 0.84, Estim Creat Clear Calc 89.22, Est GFR (MDRD) Af Amer 99, Est GFR (MDRD) Non-Af 82, BUN/Creatinine Ratio 10.7, Glucose 98, Calcium 7.7 L, Total Bilirubin 2.20 H, AST 234 H, ALT 426 H, Alkaline Phosphatase 171 H, Total Protein 6.5, Albumin 3.0 L, Globulin 3.5, Albumin/Globulin Ratio 0.9, Lipase 21 Radiography Diagnostic Testing: Radiology Impression Abdomen Ultrasound 10/12/23 07:21 IMPRESSION: Diffuse fatty infiltration of the liver. Multiple gallstones. Positive sonographic Diallo''s sign. Electronically Signed: Alex York MD at 10:11 EST , Cholangiogram 10/12/23 12:30 IMPRESSION: Tiny filling defect in the distal portion of the common bile duct with the nonvisualization of contrast entering the duodenum. A distal common bile duct stone should be ruled out. Electronically Signed: Alex York MD at 14:07 EST , Endo Retro Cholangiopancreatogram 10/12/23 16:25 IMPRESSION: undefined Physical Exam Const oriented x3 and no apparent distress Resp normal respiratory effort GI soft to palpation and non-tender Assessment & Plan Assessment/Plan (1) Obstructive jaundice: PLAN: Patient is doing well after laparoscopic cholecystectomy and ERCP with stone removal. Patient tolerated some clears last night. She is not having much abdominal pain and denies any nausea or vomiting. No signs of pancreatitis. I will stop her IV fluids and stop her IV antibiotics. I will start oral pain medication and regular diet. If she tolerates this I will discharge her home this afternoon. Brandon Overton MD Pager: [facility] [address] [place] [address], [address] [place] [address] Office:
[2023-10-13 08:06] VITALS: O2SAT 96
[2023-10-13 08:31] LABS: Absolute Lymphocyte Count 1.62 X10^3/uL (0.83-4.51); Absolute Neutrophil Count 7.1 X10^3/uL (2.0-7.7); Basophil# 0.02 X10^3/uL; Basophil% 0.2 % (0-1); Eosinophil# 0.01 X10^3/uL; Eosinophils% 0.1 % (0-5); Hematocrit 34.1 % (37-47); Lymphocyte # 1.62 X10^3/ul (0.83-4.51); Lymphocyte % 17.1 % (19-41); Mean Corp Hgb Conc 32.3 g/dL (32-36); Mean Corpuscular Hgb 30.1 pg (27.0-32.0); Mean Corpuscular Volume 93.4 fL (81-99); Mean Platelet Vol. 10.9 fl (6.2-12.0); Monocyte# 0.68 X10^3/uL; Monocyte% 7.2 % (0-10); NRBC Flagged by Analyzer 0 % (0-5); Neutrophil # 7.08 X10^3/uL (2.7-7.7); Platelet Count 278 K/mm3 (150-450); RBC Distribution Width CV 11.9 % (11.6-14.6); RBC Distribution Width SD 41.2 fl (35.1-43.9); Red Blood Count 3.65 M/mm3 (4.2-5.4); White Blood Count 9.5 K/mm3 (4.4-11.0)
--- NOTE | 2023-10-13 08:31 | PCM.DC.SUM ---
Providers Date of Admission: 10/12/23 Primary Care Physician: Stephania Primary Care Phys Consultations 10/12/23 13:09 Consult: Gastroenterology Routine Consulting Provider: [facility] Reason for Consult: CBD stone EMERGENT Consult: No MD Notified: Yes Date Notified: 10/12/23 Time Notified: 13:09 Method of Notification: Verbal Reason For Visit: CHOLELITHIASIS Diagnosis Discharge Diagnosis (1) Obstructive jaundice: Status: Acute Code(s): K83.1 - Obstruction of bile duct Plan: Patient is doing well after laparoscopic cholecystectomy and ERCP with stone removal. Patient tolerated some clears last night. She is not having much abdominal pain and denies any nausea or vomiting. No signs of pancreatitis. I will stop her IV fluids and stop her IV antibiotics. I will start oral pain medication and regular diet. If she tolerates this I will discharge her home this afternoon. Brandon Overton MD Pager: [facility] [address] [place] [address], [address] [place] [address] Office: Medications at Discharge Home Medications albuterol sulfate 90 mcg/actuation aerosol inhaler 2 puff inhalation Q4H PRN shortness of breath or wheezing 10/12/23 bupropion HCl 150 mg 24 hr tablet, extended release 150 mg PO DAILY 10/12/23 ergocalciferol (vitamin D2) 1,250 mcg (50,000 unit) capsule 1,250 mcg PO QWEEK supplement 10/12/23 hydroxyzine HCl 50 mg tablet 50 mg PO DAILY PRN 10/12/23 pantoprazole 40 mg tablet,delayed release 40 mg PO DAILY 10/12/23 oxycodone 5 mg tablet 5 - 10 mg (1 - 2 x 5 mg) PO Q4H PRN PRN Pain Score 4-10 5 days #20 tabs 10/13/23 Hospital Course Operations cholecystecomy and ERCP Summary of Care Provided Hospital Course: Patient was transferred from [facility] with abdominal pain. She had elevated liver enzymes. She was taken for laparoscopic cholecystectomy with cholangiograms. Cholangiograms revealed retained stone in the common bile duct. Later that day she was taken for ERCP and stone was removed. The following morning the patient was tolerating a diet of clear liquid. She was advanced to regular and once tolerating will be discharged home. Weight / BMI Weight Weight: 167 lb 8.821 oz Body Mass Index (BMI) 30.6 ABG / Lab / Microbiology Data 10/13/23 07:40 10/12/23 07:21 Laboratory: Laboratory Results - last 24 hr 10/13/23 07:40: WBC 9.5, RBC 3.65 L, Hgb 11.0 L, Hct 34.1 L, MCV 93.4, MCH 30.1, MCHC 32.3, RDW Std Deviation 41.2, RDW Coeff of Lizet 11.9, Plt Count 278, MPV 10.9, Immature Gran % (Auto) 0.400, Neut % (Auto) 75.0 H, Lymph % (Auto) 17.1 L, [place] % (Auto) 7.2, Eos % (Auto) 0.1, Baso % (Auto) 0.2, Absolute Neuts (auto) 7.1, Absolute Lymphs (auto) 1.62, Nucleated RBC % 0 Radiography Diagnostic Testing: Radiology Impression Abdomen Ultrasound 10/12/23 07:21 IMPRESSION: Diffuse fatty infiltration of the liver. Multiple gallstones. Positive sonographic Diallo''s sign. Electronically Signed: Alex York MD at 10:11 EST , Cholangiogram 10/12/23 12:30 IMPRESSION: Tiny filling defect in the distal portion of the common bile duct with the nonvisualization of contrast entering the duodenum. A distal common bile duct stone should be ruled out. Electronically Signed: lAex York MD at 14:07 EST , Endo Retro Cholangiopancreatogram 10/12/23 16:25 IMPRESSION: undefined D/C Instructions Discharge Diet: Light diet - advance as tolerated Discharge Activity: May Not Drive (for 2-3 days or while taking narcotic pain medications.), May Shower and - (Do not drive, work heavy equipment or sign legal documents for 24 hours.) Lifting Restrictions: 20 lbs for 2 weeks Additional Activity Instructions: Pain medication may cause nausea. You should typically eat light foods as you take your pain medications. Pain medication may also cause constipation. If this is a problem for you, please discuss with your doctor. Call your doctor if your incision/area has: Continuous Slow Oozing, Sudden Increased Bleeding, Increased Pain/ Swelling, Increased Redness and Foul Smelling Discharge Call your doctor if you observe: Fever of 101 or Higher Suture Line Care: Avoid Pulling/Pushing and Avoid Pinching/Bending Remove Dressing in: 1 day Additional Dressing/Incision Instructions: Leave operative bandaids on for 2 days. When you remove dressing, leave Steri-Strips on until your follow-up appointment, or until the Steri-Strips fall off on their own. Please Follow Up With: Brandon Overton MD When: Please call to schedule 2 week follow up appointment. [phone] Meaningful Use Info Meaningful Use Diagnoses (Choose all that apply): None applicable Discharge Plan Admission Admit Date/Time: 10/12/23 07:12 Attending Provider: Brandon Overton Primary Care Provider: Care Physician,No Primary Instructions Additional Instructions / Restrictions: Alternate ibuprofen and Tylenol for pain, oxycodone for breakthrough. Discharge Orders/Prescriptions Prescriptions: New oxycodone 5 mg Tablet 5 - 10 mg PO Q4H PRN PRN (Reason: Pain Score 4-10) 5 Days Qty: 20 0RF Continued hydroxyzine HCl 50 mg tablet 50 mg PO DAILY PRN Patient Comments: TAKE 1 TABLET BY MOUTH DAILY NEEDED FOR INCREASED ANXIETY OR SLEEP pantoprazole 40 mg tablet,delayed release (DR/EC) 40 mg PO DAILY Patient Comments: TAKE 1 TABLET BY MOUTH ONCE DAILY ergocalciferol (vitamin D2) 1,250 mcg (50,000 unit) capsule 1,250 mcg PO QWEEK Patient Comments: TAKE 1 CAPSULE BY MOUTH ONCE A WEEK Rx Instructions: Takes on Thursday albuterol sulfate 90 mcg/actuation HFA aerosol inhaler 2 puff INHALATION Q4H PRN (Reason: shortness of breath or wheezing) Patient Comments: INHALE 2 PUFFS BY MOUTH EVERY 4 HOURS NEEDED FOR PERSISTANT COUGH, WHEEZING, OR SHORTNESS OF BREATH bupropion HCl 150 mg tablet extended release 24 hr 150 mg PO DAILY Patient Comments: TAKE 1 TABLET BY MOUTH IN THE MORNING Referrals / Follow Up: Care Physician,No Primary [Primary Care Provider] - Disposition Disposition (needs filled in before D/C Order can be placed): Home, Self Care Follow-Up Follow-Up Follow-Up: Weeks (Dr Hart-Contact his office to schedule ERCP stent removal [phone])
[2023-10-13 08:57] LABS: ALB/GLOB Ratio 0.8 RATIO (0.9-2.4); AST(SGOT) 92 U/L (15-37); Alanine Aminotransfer ALT/SGPT 266 U/L (13-56); Albumin, Serum 2.7 g/dL (3.2-5.0); Alkaline Phosphatase 144 U/L (45-117); Anion Gap 6 (5-15); BUN 8 mg/dL (7-18); Calcium,Total 8.5 mg/dL (8.5-10.1); Chloride 109 mmol/L (98-107); EST Glomerular Filtration Rate 87 mL/min (>60); Est Glom Filt Rate - Afr Amer 105 mL/min (>60); Estimated Creatinine Clearance 93.68 ml/min; Globulin 3.2 g/dL (2.2-4.2); Glucose 106 mg/dL (74-106); Potassium 3.7 mmol/L (3.5-5.1); Protein, Total 5.9 g/dL (6.4-8.2); Sodium Level 138 mmol/L (136-145)
[2023-10-13] MEDS: Pantoprazole Sodium 40 MG in 0.9% Normal Saline (100mL MB+) 100 ML 330 MG IV (09:52)
[2023-10-13 10:20] VITALS: BP 110/66; PULSE 96; RESP 14; TEMP 36.7; O2SAT 98
[2023-10-13 10:22] VITALS: BP 101/65; PULSE 87; RESP 18; TEMP 36.4; O2SAT 100
--- NOTE | 2023-10-13 10:47 | CASEMGMT ---
RN?CM?[employer]?CM?to room to meet with patient for initial transition planning/care coordination?assessment.?RN?CM?introduced self and role at [facility].? Pt voices understanding and consents to?assessment?at this time.? Pt resting in bed in no distress at this time.? Pt is A/O at this time and answers all questions appropriately.?? Care providers, pharmacy, and demographics verified/updated at this time. PCP: [facility] Specialists: none [facility]erred [facility]acy: [facility] Insurance: [employer] Prescription Benefit:?yes Living Will/HPOA:?Pt does not currently have LW/HCPOA and declines info at this time.? Pt made aware that she can contact as an out-pt and make appt in the future if she decides she would like to talk with someone about this or would like to utilize [facility] social work for advanced directive completion.? LNOK: Parents are both living and she is in contact with them, they just do not live close and not involved a lot. She also has 3 brothers. Sig other is Esteban Nunez and pt states she wants him listed as primary contact for her. Living Arrangements: Lives w/significant other, Esteban, and her 4 children ages 13, 8, 6, and 4. Independent. Transportation:?Pt states drives self and states no transportation concerns at this time.?Esteban also drives DME: ? Denies using any DME and denies needs.? HHC/SNF: No hx of either. Pt wishes to return home and states has no concerns with going home at time of discharge.? Pt voices no concerns/needs at this time.? PLAN:??Home Chad BSN?RN?CM
--- NOTE | 2023-10-13 11:01 | PHA.DC_ITS ---
Pharmacy [facility] has performed discharge medication reconciliation and counseling for this patient. The patient's discharge medication list was reviewed for discrepancies and discrepancies were resolved. The patient was counseled on the following discharge medications and changes in medications for homegoing were reviewed. The Reason for Use, instructions for use, and potential side effects were reviewed for all new medications. The patient's questions regarding all of their medications were answered. 1. Oxycodone 5-10 mg PO Q4H PRN pain. The patient was able to verbally demonstrate an understanding of their discharge medications. Medications at Discharge Home Medications albuterol sulfate 90 mcg/actuation aerosol inhaler 2 puff inhalation Q4H PRN shortness of breath or wheezing 10/12/23 bupropion HCl 150 mg 24 hr tablet, extended release 150 mg PO DAILY 10/12/23 ergocalciferol (vitamin D2) 1,250 mcg (50,000 unit) capsule 1,250 mcg PO QWEEK supplement 10/12/23 hydroxyzine HCl 50 mg tablet 50 mg PO DAILY PRN 10/12/23 pantoprazole 40 mg tablet,delayed release 40 mg PO DAILY 10/12/23 oxycodone 5 mg tablet 5 - 10 mg (1 - 2 x 5 mg) PO Q4H PRN PRN Pain Score 4-10 5 days #20 tabs 10/13/23
== END 2023-10-13 13:45 | disposition home or self-care (01) | DRG 263 ==
PROVIDERS: Internal Medicine Gastroenterology; Admitting Provider Surgery; PCP Nurse Practitioner Family; Visit Provider Surgery
PROC: 0FT44ZZ Resection of Gallbladder, Percutaneous Endoscopic Approach (ICD-10-PCS; CPT 47610; principal; 2023-10-12 12:20)
PROC: 0FC98ZZ Extirpation of Matter from Common Bile Duct, Via Natural or Artificial Opening Endoscopic (ICD-10-PCS; CPT 43260; principal; 2023-10-12 15:10)
DX: K80.71 Calculus of gallbladder and bile duct without cholecystitis with obstruction (principal); F32.A Depression, unspecified; K75.89 Other specified inflammatory liver diseases; Z87.891 Personal history of nicotine dependence; Z79.899 Other long term (current) drug therapy
CPT/HCPCS: 36415; 74300; 74330; 76000; 76705; 80053; 83690; 85025; 88304; 93005; J7030; J7120; A4216; J2405